=== PATIENT | male | born 1950 | race Caucasian/White ===

== ENCOUNTER 2020-10-08 09:26 | Inpatient (IN) | payer MEDICARE, OTHER ==
[2020-10-08] VITALS (20 sets, daily range): BP systolic 86–144; BP diastolic 48–85
[~2020-10-08] VITALS: Ht 188 cm; Wt 113.4 kg
[~2020-10-08 09:26] MED LIST: ALTACE10 MG PO; AMITRIPTYLINE H50 M2 PO; CLOPIDOGREL; GLUCOPHAGE1000 MG PO; GLUCOTROL; HYDROCHLOROTHIA25 M1 PO; KLOR-CON 1010 MEQ PO; LIPITOR40 MG PO; OMEPRAZOLE 20 M20 M1 PO; TENORMIN; TRAMADOL; ZINC
[2020-10-08] MEDS ORDERED: SPIRONOLACTONE50 MG PO (09:38)
[2020-10-08] MEDS ORDERED: NORVASC10 MG PO (09:39)
[2020-10-08] MEDS ORDERED: NORCO 10-325 T1 EACH PO (09:39)
[2020-10-08] MEDS ORDERED: LEVO-T50 MCG PO (09:40)
[2020-10-08] MEDS ORDERED: METOPROLOL SUC100 MG PO (09:41)
[2020-10-08 10:04] LABS: HEMATOCRIT 42.8 % (42.0-52.0); HEMOGLOBIN 14.1 gm/dL (14.0-18.0); MCH 31.2 pg (26.0-34.0); MCHC 32.9 g/dL (28.0-37.0); MCV 94.9 fL (80.0-100.0); MPV 7.6 fl. (7.2-11.1); NUCLEATED RBCS 0 /100WBC; PLATELET COUNT* 355 thou/uL (150-400); RBC 4.51 mil/uL (4.50-6.00); RDW-CV 12.5 % (10.5-14.5); WBC 20.5 thou/uL (4.0-11.0)
[2020-10-08 10:13] LABS: CALCIUM 8.7 mg/dL (8.5-10.1); CREATININE 4.5 mg/dL (0.6-1.3); POTASSIUM 5.5 mmol/L (3.5-5.1)
[2020-10-08 10:22] LABS: APTT 26.9 Seconds (25.0-31.3); INR 1.1; PROTIME 11.6 Seconds (9.20-11.50)
[2020-10-08 10:23] LABS: ALBUMIN 3.5 g/dL (3.4-5.0); TOTAL BILIRUBIN 1.6 mg/dL (<0.1-1.0); TOTAL PROTEIN 8.4 g/dL (6.4-8.2)
[2020-10-08 10:40] LABS: ABSOLUTE LYMPHOCYTES 0.8 thou/uL (0.8-5.3); ABSOLUTE MONOCYTES 1.4 thou/uL (0.0-1.2); ABSOLUTE NEUTROPHILS 18.2 thou/uL (1.6-8.1); PLATELET ESTIMATE ADEQUATE
[2020-10-08 11:32] LABS: BE -9.8 mmol/L (-2 to +3); PCO2 VENOUS 34.7 mmHg (41.0-51.0); PO2 VENOUS 40.9 mmHg (35.0-45.0)
[2020-10-08 12:56] LABS: BE -6.4 mmol/L (-2 to +3); PCO2 31.3 mmHg (35.0-45.0); PO2 63.2 mmHg (75.0-100.0)
[2020-10-08 13:38] LABS: URINE BLOOD 2+ (Negative); URINE CLARITY CLEAR; URINE COLOR BROWN; URINE GLUCOSE-RANDOM 1+ (Negative); URINE KETONES TRACE (Negative); URINE LEUKOCYTES-REFLEX NEGATIVE (Negative); URINE PROTEIN TRACE (Negative); URINE SPECIFIC GRAVITY >= 1.030 (1.005-1.030)
[2020-10-08 13:40] LABS: ICTOTEST (BILI CONFIRMATORY) Negative (Negative); URINE BILIRUBIN 2+ (Negative); URINE NITRITE-REFLEX POSITIVE (Negative)
[2020-10-08 13:49] LABS: HYALINE CASTS >10 Many /LPF (None Seen)
[2020-10-08 13:50] LABS: MUCUS 0-3 Light strn/LPF (None Seen); URINE WBC-REFLEX 6-15 Few /HPF (0-5)
[2020-10-08 13:51] LABS: AMORPHOUS URATES Moderate /LPF (None Seen)
[2020-10-08 13:52] LABS: SQUAMOUS 0-3 Few /LPF (0-3); URINE RBC 0-2 Rare /HPF (0-2)
[2020-10-08 13:54] LABS: BACTERIA-REFLEX 1-9 Few /HPF (None Seen)
--- NOTE | 2020-10-08 14:44 | NUR ---
1252 PT ADMITTED PER CART FROM ER. PLEASE SEE ADMISSION HISTORY AND ASSESSMENT. PT HAS BEEN INCONTINENT OF URINE. LINDER PLACED ORDERED
[2020-10-08 15:15] LABS: CK-MB MASS 17.8 ng/mL (<0.5-3.6); MAGNESIUM 1.8 mg/dL (1.8-2.4); PHOSPHORUS* 4.1 mg/dL (2.5-4.9)
[2020-10-08 16:27] LABS: ALBUMIN 2.8 g/dL (3.4-5.0); CALCIUM 8.5 mg/dL (8.5-10.1); CREATININE 4.3 mg/dL (0.6-1.3); MAGNESIUM 1.7 mg/dL (1.8-2.4); PHOSPHORUS* 4.1 mg/dL (2.5-4.9); POTASSIUM 4.9 mmol/L (3.5-5.1)
--- NOTE | 2020-10-08 16:58 | NUR ---
CLOTHING SENT HOME WITH SPOUSE. DPOA INFORMATION GIVEN TO SPOUSE.
[2020-10-08] MEDS ORDERED: GLIPIZIDE 10 MG10 MG PO (17:08)
--- NOTE | 2020-10-08 17:32 | NUR ---
PATIENT PROGRESSING TOWARDS GOALS.MORE ALERT. ELECTROLYTES CORRECTING. REMAINS ON DKA PROTOCOL. LESS TACHYCARDIC. ABDOMEN SOFTER AFTER DECOMPRESSION WITH NG TUBE. SEE INTAKE AND OUTPUT AND VITAL SIGN CHARTING. SPOUSE HAS VISITED. MED LIST UPDATED
[2020-10-08 20:22] LABS: ALBUMIN 2.9 g/dL (3.4-5.0); CALCIUM 7.6 mg/dL (8.5-10.1); CREATININE 4.2 mg/dL (0.6-1.3); MAGNESIUM 1.7 mg/dL (1.8-2.4); POTASSIUM 4.2 mmol/L (3.5-5.1)
[2020-10-09] VITALS (31 sets, daily range): BP systolic 99–132; BP diastolic 50–76
[2020-10-09 00:39] LABS: ALBUMIN 2.7 g/dL (3.4-5.0); CALCIUM 7.7 mg/dL (8.5-10.1); CREATININE 4.4 mg/dL (0.6-1.3); MAGNESIUM 1.7 mg/dL (1.8-2.4); PHOSPHORUS* 3.4 mg/dL (2.5-4.9); POTASSIUM 4.3 mmol/L (3.5-5.1)
[2020-10-09 04:28] LABS: CALCIUM 8.8 mg/dL (8.5-10.1); CREATININE 4.8 mg/dL (0.6-1.3); POTASSIUM 4.2 mmol/L (3.5-5.1)
[2020-10-09 04:30] LABS: ALBUMIN 2.5 g/dL (3.4-5.0); CALCIUM 8.8 mg/dL (8.5-10.1); CREATININE 4.8 mg/dL (0.6-1.3); MAGNESIUM 1.7 mg/dL (1.8-2.4); PHOSPHORUS* 3.3 mg/dL (2.5-4.9); POTASSIUM 4.2 mmol/L (3.5-5.1)
[2020-10-09 04:53] LABS: ABSOLUTE LYMPHOCYTES 0.6 thou/uL (0.8-5.3); ABSOLUTE MONOCYTES 1.6 thou/uL (0.0-1.2); BASOPHILS 0.1 %; HEMATOCRIT 37.1 % (42.0-52.0); HEMOGLOBIN 12.8 gm/dL (14.0-18.0); LYMPHOCYTES 4.3 %; MCHC 34.4 g/dL (28.0-37.0); MCV 90.2 fL (80.0-100.0); MPV 7.5 fl. (7.2-11.1); NUCLEATED RBCS 0 /100WBC; PLATELET COUNT* 371 thou/uL (150-400); POLYS 84.6 %; RBC 4.11 mil/uL (4.50-6.00); RDW-CV 12.7 % (10.5-14.5); WBC 14.1 thou/uL (4.0-11.0)
[2020-10-09 08:22] LABS: ALBUMIN 2.4 g/dL (3.4-5.0); CALCIUM 7.7 mg/dL (8.5-10.1); CREATININE 4.9 mg/dL (0.6-1.3); MAGNESIUM 1.8 mg/dL (1.8-2.4); PHOSPHORUS* 3.9 mg/dL (2.5-4.9); POTASSIUM 4.3 mmol/L (3.5-5.1)
[2020-10-09 08:43] LABS: TROPONIN-I LEVEL 0.06 ng/mL (<0.06)
--- NOTE | 2020-10-09 09:22 | NUR ---
8792 ASSUMED CARE OF PATIENT. PLEASE SEE DOCUMENTED ASSESSMENT.
--- NOTE | 2020-10-09 09:23 | NUR ---
0800 DR BARRERA HERE AND STOPPING DKA PROTOCOL. SEE EMAR
--- NOTE | 2020-10-09 09:46 | EKG ---
[place] [address] ELECTROCARDIOGRAM REPORT Name: CAMILLE ANDERSON Room: [address] IN M.R.#: [id number] Admission: 10/08/20 Attend Phys: Chato Charles, Discharge: Date of : 48 Date of Service: 10/08/20 0933 Report #: [id number] THIS REPORT FOR: //name// [facility] ED Test Date: 2020-10-08 Test Time: 09:33:13 Pat Name: CAMILLE ANDERSON Department: Room: [facility] Gender: M Check Totaler: ANDREA : 1950 Requested By: Ruddy Albert Order Number: [id number] MD: Kali Dee Measurements Intervals [place] Rate: 134 P: CA: QRS: -6 QRSD: 102 T: 113 QT: 333 QTc: 498 Interpretive Statements atrial tachycardia Inferior infarct, old Abnormal lateral Q waves Probable anteroseptal infarct, old Baseline wander in lead(s) II,III,aVF Compared to ECG 12/12/2009 09:53:04 Sinus rhythm no longer present Myocardial infarct finding still present Electronically Signed On 10-09-2020 9:46:36 CDT by Kali Dee [email or web address] <ELECTRONICALLY SIGNED> By: Kali Dee MD, [facility] 10/09/20945 2 2 Kali Dee MD, [facility] /EPI
--- NOTE | 2020-10-09 17:13 | NUR ---
PATIENT HAS MADE SOME PROGRESS TOWARDS GOALS. MORE ORIENTED MOST OF DAY. FENTANYL X 1 FOR NECK PAIN. NEEDS SUPPLEMENTAL OXYGEN WHEN ASLEEP. OFF OF DKA PROTOCOL. CO/ THIRST. FREQUENT ORAL CARE. WOUND ON COCCYX TREATED CHARTED. PLAN IS CONTINUE NG DECOMPRESSION AT LEAST OVERNIGHT. PT STATES HE IS PASSING FLATUS. POSSIBLE TELE TOMORROW PER HOSPITALIST. SPOUSE PRESENT MUCH OF DAY.
[2020-10-10] VITALS (40 sets, daily range): BP systolic 120–163; BP diastolic 55–105
[2020-10-10 02:05] LABS: GLYCOHEMOGLOBIN (HGB A1C) 7.5 % (4.8-5.6)
[2020-10-10 04:12] LABS: ABSOLUTE LYMPHOCYTES 0.6 thou/uL (0.8-5.3); ABSOLUTE MONOCYTES 1.7 thou/uL (0.0-1.2); ABSOLUTE NEUTROPHILS 10.3 thou/uL (1.6-8.1); ALBUMIN 2.1 g/dL (3.4-5.0); ALKALINE PHOSPHATASE 60 U/L (46-116); ANION GAP 14 mmol/L (7-16); BUN 80 mg/dL (7-18); CALCIUM 7.6 mg/dL (8.5-10.1); CHLORIDE 104 mmol/L (98-107); CO2 20 mmol/L (21-32); CREATININE 4.6 mg/dL (0.6-1.3); EOSINOPHILS 0.1 %; GLUCOSE 174 mg/dL (70-99); HEMATOCRIT 35.1 % (42.0-52.0); HEMOGLOBIN 11.8 gm/dL (14.0-18.0); LYMPHOCYTES 4.9 %; MCH 31.5 pg (26.0-34.0); MCHC 33.7 g/dL (28.0-37.0); MCV 93.4 fL (80.0-100.0); MONOCYTES 13.5 %; MPV 7.3 fl. (7.2-11.1); NUCLEATED RBCS 0 /100WBC; PHOSPHORUS* 4.5 mg/dL (2.5-4.9); PLATELET COUNT* 325 thou/uL (150-400); POLYS 81.5 %; POTASSIUM 4.2 mmol/L (3.5-5.1); RBC 3.76 mil/uL (4.50-6.00); RDW-CV 12.5 % (10.5-14.5); SGOT 124 U/L (15-37); SGPT 62 U/L (30-65); SODIUM 138 mmol/L (136-145); TOTAL BILIRUBIN 0.8 mg/dL (<0.1-1.0); TOTAL PROTEIN 6.4 g/dL (6.4-8.2); WBC 12.7 thou/uL (4.0-11.0)
[2020-10-10 04:43] LABS: PREALBUMIN 12.7 mg/dL (18.0-35.7)
--- NOTE | 2020-10-10 10:21 | NUR ---
WOUND NURSE: PATIENT WAS SEEN TO ADDRESS NEW CHANGE IN SKIN CHARACTERISTIC TO BILATERAL BUTTOCKS. PRESENTS WITH MAROON COLORED NONBLANCHEABLE AREA WITH CURRENTLY INTACT SKIN, BUT WITH SIGNIFICANT INDRUATIN OVER WTH LEFT ISCHIAL TUBEROSITY. EACH AFFECTED AREA MEASURES APPROX 5 X 5 CM. THE AFFECTED AREA ALSO PRESENTS WITH BUTTERFLY APPEARANCE WHICH MAY REPRESENT THE ONSET OF A DEIRDRE ULCER. PATIENT IS ON ICU LOW AIRLOSS MATTRESS AND IS ON TURN SCHEDULE. RECOMMEND SIDE TO SIDE REPOSITIONING AND AVOID POSITIONING ON BACK AT THIS TIME. PATIENT IS CURRENTLY NOT TEACHABLE PERTAINING TO THIS WOUND.
--- NOTE | 2020-10-10 14:50 | NUR ---
ICU rounds: SBO, NG tube in place, no surgery planned at this time. Renal following. Pt may need a lap diana once med stable. Pt is A&O. Resides at home with , in room at bedside. Pt normally independent. Pt has a cane that he uses for community distances and a walker that he uses in the community. Hx of HH in 2009 post CVA. No hx of SNF or ARU. Goal is home at dc, CM to follow for dc needs. Anticipate Pt will be inpt for several days. Remains ICU status.
--- NOTE | 2020-10-10 18:26 | NUR ---
PT A&O x2, FREQUENT RE-ORIENTATION PROVIDED, PLEASANT AND CO-OPERATIVE. AND DAUGHTER IN THE ROOM MOST OF THE DAY. CARDIZEM TITRATED PER PROTOCOL, CURRENTLY AT 15 MG/HR, ECG- A FIB RATE CONTROLLED. VSS. NG CONTD TO LIS, MINIMAL DRAINAGE. SMALL BOWEL SERIES TOMMOROW. 1/2 NS CONTD AT 50 MLS/HR. REPORT GIVEN TO KERRY WHITE, TELE.
[2020-10-11] VITALS: BP 108/69
[2020-10-11 04:00] VITALS: BP 136/76
[2020-10-11 05:19] LABS: ABSOLUTE LYMPHOCYTES 0.6 thou/uL (0.8-5.3); ABSOLUTE MONOCYTES 1.7 thou/uL (0.0-1.2); ABSOLUTE NEUTROPHILS 12.6 thou/uL (1.6-8.1); BASOPHILS 0.1 %; HEMATOCRIT 36.6 % (42.0-52.0); HEMOGLOBIN 12.3 gm/dL (14.0-18.0); LYMPHOCYTES 3.9 %; MCH 31.2 pg (26.0-34.0); MCHC 33.6 g/dL (28.0-37.0); MCV 92.9 fL (80.0-100.0); MONOCYTES 11.7 %; MPV 7.1 fl. (7.2-11.1); NUCLEATED RBCS 0 /100WBC; PLATELET COUNT* 395 thou/uL (150-400); POLYS 84.3 %; RBC 3.93 mil/uL (4.50-6.00); RDW-CV 12.3 % (10.5-14.5)
[2020-10-11 05:23] LABS: ALBUMIN 2.2 g/dL (3.4-5.0); CALCIUM 8.3 mg/dL (8.5-10.1); TOTAL BILIRUBIN 0.7 mg/dL (<0.1-1.0); TOTAL PROTEIN 6.9 g/dL (6.4-8.2)
--- NOTE | 2020-10-11 05:31 | NUR ---
PT AWAKE ON AND OFF THIS SHIFT. ASSESSMENT DOCUMENTED. MEDS GIVEN PER E-MAR. IV PATENT, FLUIDS INFUSING. CARDIZEM DRIP RUNNING. PAIN MEDS GIVEN PER E-MAR WITH RELIEF. NG TUBE TO LIS. LINDER IN PLACE TO DEPENDAND DRAINAGE. FALL PRECAUTIONS IN PLACE. WILL CONTINUE WITH PLAN OF CARE.
[2020-10-11 05:32] LABS: CALCIUM 8.3 mg/dL (8.5-10.1)
[2020-10-11 08:28] VITALS: BP 133/74
--- NOTE | 2020-10-11 09:42 | EKG ---
[place] [address] ELECTROCARDIOGRAM REPORT Name: CAMILLE ANDERSON Room: [address] ADM IN M.R.#: [id number] Admission: 10/08/20 Attend Phys: Chato Charles, Discharge: Date of : 48 Date of Service: 10/11/20 0851 Report #: [id number] THIS REPORT FOR: //name// [facility] Test Date: 2020-10-11 Test Time: 08:51:49 Pat Name: CAMILLE ANDERSON Department: Room: [facility] Gender: M Banquet Manager: ANIL : 1950 Requested By: Kali Dee Order Number: [id number] Reading MD: Kali Dee Measurements Intervals [place] Rate: 100 P: DE: QRS: -8 QRSD: 97 T: 122 QT: 354 QTc: 457 Interpretive Statements Atrial fibrillation Ventricular premature complex Anterior infarct, old Nonspecific T abnormalities, lateral leads Compared to ECG 10/08/2020 09:33:13 Ventricular premature complex(es) now present Ectopic atrial tachycardia, unifocal no longer present Myocardial infarct finding still present Electronically Signed On 10-11-2020 9:41:50 CDT by Kali Dee [email or web address] <ELECTRONICALLY SIGNED> By: Kali Dee MD, [facility] 10/11/20 0941 0 0 Kali Dee MD, [facility] /EPI
--- NOTE | 2020-10-11 10:31 | NUR ---
RADIOLOGY AT BEDSIDE TO DO BOWEL SERIES.
--- NOTE | 2020-10-11 12:56 | NUR ---
INSTRUCTED TO KEEP NG TUBE CLAMPED PER DR. MEZA.
--- NOTE | 2020-10-11 13:38 | CON ---
[address] [address] CONSULTATION Name: CAMILLE ANDERSON Kimberly Room: [address] IN [place].Bria.#: [id number] Admission: 10/08/20 Attend Phys: Chato Charles MD Discharge: Date of : 48 Report #: [id number] THIS REPORT FOR: cc: Joyce Burrows Tammy RNP Blick, David R. MD [facility] ~ DATE OF SERVICE: 10/10/2020 HISTORY OF PRESENT ILLNESS: The patient is a 70-year-old white male who I was asked to see in the hospital today after he was noted to be in atrial fibrillation. The patient has no previous history of heart disease. He apparently had a stress test years ago. He is not very active at this time. He was admitted to [facility] 4 days ago with abdominal pain and vomiting. He was found to have cholecystitis. He was placed on NG suction. This weekend, he went into atrial fibrillation. Cardiology consultation was requested. He denies history of chest pain, shortness of breath, palpitations, syncope, heart murmur. PAST MEDICAL HISTORY: Significant for: 1. Hernia repair 2. Sinus surgery. 3. Hypertension. 4. Hyperlipidemia. 5. Diabetes. 6. He apparently had a stroke back in 2009 affecting his speech. He was admitted to [facility] and was found to have a small bleed, but did not require surgery. CURRENT MEDICATIONS: Consist of: 1. Metformin. 2. Spironolactone. 3. Elavil. 4. Amlodipine. 5. Synthroid. 6. Potassium. 7. Omeprazole. 8. Altace. 9. Lipitor. 10. Metoprolol. 11. Glipizide. ALLERGIES: He has no known drug allergies. FAMILY HISTORY: [place] [address] CONSULTATION Name: CAMILLE ANDERSON Kimberly Room: [address]#: [id number] Admission: 10/08/20 Attend Phys: Chato Charles MD Discharge: Date of : 48 Report #: [id number] SOCIAL HISTORY: He is . He and his live in [place]. 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 No smoking. No alcohol abuse. REVIEW OF SYSTEMS: No history of asthma, liver disease. He has had a bladder stone in the past. No cancer. No psychiatric illness. No chronic skin condition. PHYSICAL EXAMINATION: GENERAL: Revealed a large, elderly male, lying in bed. He appeared in no distress. He has an NG suction tube in place. VITAL SIGNS: Reveals blood pressure of 140/ , pulse is 100 and irregular, respirations nonlabored. He is afebrile. HEENT: He is anicteric. Conjunctivae pink. Mucous membranes are moist. NECK: Veins do not appear distended. No carotid bruits. CHEST: Clear to auscultation. CARDIAC: Irregular, tachycardia. ABDOMEN: Obese, soft. EXTREMITIES: Had no edema. Dorsalis pedis pulse 2+ bilaterally. SKIN: Cool and dry. NEUROLOGIC: Nonfocal. RADIOLOGICAL DATA: His ECG on admission showed a sinus tachycardia, first-degree AV block, septal Q-waves. His current ECG shows atrial fibrillation with an increased ventricular response rate. His workup so far included an x-ray on admission that showed normal heart size, clear lung romero, decreased inspiration. LABORATORY DATA: Sodium 138, potassium 4.2. Creatinine was 0.9 in 2009 and on admission it is 4.5 and currently it is 4.6. SGOT 124, SGPT 62. Albumin 2.1. Troponins 0.06. BNP 4503. White blood cell count 12.7, hematocrit 35.1. His urinalysis, trace protein. IMPRESSION AND RECOMMENDATIONS: 1. Atrial fibrillation. I would consider anticoagulation because of his previous history of stroke. I would agree with diltiazem and metoprolol to control the ventricular response rate. I would not recommend cardioversion at this time. 2. Diabetes. 3. Hypertension. The patient has been on a calcium juvenal, [place] [address] CONSULTATION Name: JUSTINCAMILLE L Room: [address] [place] [facility]#: [id number] Admission: 10/08/20 Attend Phys: Chato Charles MD Discharge: Date of : 48 Report #: [id number] beta juvenal. 4. Previous anterior cerebral bleed. 5. Cholecystitis. The patient has an NG suction. 6. Hyperlipidemia. The patient is on a statin drug. 7. Diabetes. The patient has been on oral medications. 8. Obesity. 9. Acute renal failure. <ELECTRONICALLY SIGNED> By: Kali Dee MD, FACC 10/11/20 1338 1425 0040Dakermit Dee MD, FAC /nt
--- NOTE | 2020-10-11 13:47 | 2DMMODE ---
[place] [address] 2 D/M-MODE ECHOCARDIOGRAM Name: LILIANKimberlyCAMILLE L Room: [address] IN Barbie#: [id number] Admission: 10/08/20 Attend Phys: Chato Charles, Discharge: Date of : 48 Date of Service: 10/10/20 1555 Report #: [id number] THIS REPORT FOR: cc: Joyce Burrows Tammy RNP Blick, David R. MD [facility] ~ APPROVED REPORT Study performed: 10/10/2020 10:10:01 EXAM: Comprehensive 2D, Doppler, and color-flow Echocardiogram Patient Location: In-Patient Room #: 002 Status: routine BSA: 2.28 HR: 116 bpm BP: 159/75 mmHg Other Information Study Quality: Good Indications Congestive Heart Failure 2D Dimensions IVSd: 11.49 (7-11mm) LVOT Diam: 25.06 (18-24mm) LVDd: 58.87 mm PWd: 12.09 (7-11mm) Ascending Ao: 36.76 (22-36mm) LVDs: 39.67 (25-40mm) Aortic Root: 39.08 mm Volumes Left Atrial Volume (Systole) LA ESV Index: 19.90 mL/m2 Aortic Valve AoV Peak Naun.: 1.27 m/s AO Peak Gr.: 6.46 mmHg LVOT Max P.75 mmHg AO Mean Gr.: 4.03 mmHg LVOT Mean P.37 mmHg LVOT Max V: 0.83 m/s AO V2 VTI: 18.30 cm LVOT Mean V: 0.54 m/s MILLY (VTI): 3.50 cm2 LVOT V1 VTI: 12.99 [place] [address] 2 D/M-MODE ECHOCARDIOGRAM Name: CAMILLE ANDERSON Room: [address]#: [id number] Admission: 10/08/20 Attend Phys: Chato Charles, Discharge: Date of : 48 Date of Service: 10/10/20 1555 Report #: [id number] PV Peak Naun.: 1.28 m/s PV Peak Gr.: 6.53 mmHg Tricuspid Valve RAP Estimate: 5.00 mmHg TR Peak Gr.: 29.32 mmHg RVSP: 34.00 mmHg PA Pressure: 34.00 mmHg Left Ventricle The left ventricle is normal size. moderate hypokinesis noted of the apex and inferior wall Mild concentric left ventricular hypertrophy. Left ventricular systolic function is moderately decreased. LVEF is 35-40%. Right Ventricle The right ventricle is normal size. The right ventricular systolic function is normal. Atria The left atrium size is normal. The right atrium size is normal. Aortic Valve The aortic valve is normal in structure. No aortic regurgitation is present. There is no aortic valvular stenosis. Mitral Valve The mitral valve is normal in structure. There is trace mitral valve regurgitation noted. No evidence of mitral valve stenosis. Tricuspid Valve The tricuspid valve is normal in structure. Trace tricuspid regurgitation. estimated pa pressure 40 mm hg Pulmonic Valve The pulmonary valve is normal in structure. There is no pulmonic valvular regurgitation. Great Vessels The aortic root is normal in size. IVC is not well visualized. Pericardium There is no pericardial effusion. <Conclusion> Mild concentric [place] [address] 2 D/M-MODE ECHOCARDIOGRAM Name: CAMILLE ANDERSON Room: [address] IN .R.#: [id number] Admission: 10/08/20 Attend Phys: Chato Charles, Discharge: Date of : 48 Date of Service: 10/10/20 1555 Report #: [id number] LVEF is 35-40%. moderate hypokinesis noted of the apex and inferior wall Trace tricuspid regurgitation. estimated pa pressure 40 mm hg There is trace mitral valve regurgitation noted. <ELECTRONICALLY SIGNED> By: Kali Dee MD, [facility] 10/10/20 1555 54 [id number] Kali Dee MD, FACC /INF
[2020-10-11 14:06] VITALS: BP 133/74
--- NOTE | 2020-10-11 14:09 | NUR ---
Pt up from ICU. Ng tube remains in place. KUB today. Renal following. Anticipate dc in several days. CM following for dc needs.
[2020-10-11 16:00] VITALS: BP 151/66
--- NOTE | 2020-10-11 17:43 | NUR ---
SWITCH TO PO CARDIZEM VIAN NG TUBE AND GEODON GIVEN TO HELP PT SLEEP. PT SLEEPING COMFORTABLY THIS EVENING AND WILL CHANGE TO SPECIALTY BED ONCE HE HAS HD MORE SLEEP. WILL CONTINUE TO ASSESS.
--- NOTE | 2020-10-11 19:07 | NUR ---
BEDSIDE REPORT GIVEN TO NIGHT RN.
[2020-10-11 19:20] VITALS: BP 139/67
[2020-10-12] VITALS (7 sets, daily range): BP systolic 124–162; BP diastolic 61–77
[2020-10-12 06:17] LABS: HEMATOCRIT 41.9 % (42.0-52.0); HEMOGLOBIN 13.9 gm/dL (14.0-18.0); MCHC 33.1 g/dL (28.0-37.0); MCV 93.8 fL (80.0-100.0); MPV 7.2 fl. (7.2-11.1); RBC 4.47 mil/uL (4.50-6.00); RDW-CV 12.6 % (10.5-14.5); WBC 17.9 thou/uL (4.0-11.0)
[2020-10-12 06:22] LABS: CALCIUM 9.2 mg/dL (8.5-10.1); CREATININE 2.4 mg/dL (0.6-1.3)
[2020-10-12 06:23] LABS: POTASSIUM 2.8 mmol/L (3.5-5.1)
[2020-10-12 06:29] LABS: MAGNESIUM 2.7 mg/dL (1.8-2.4)
--- NOTE | 2020-10-12 06:55 | NUR ---
PT SLEPT MOST OF SHIFT. ASSESSMENT DOCUMENTED. MEDS GIVEN PER E-AUG. IV PATENT, FLUIDS INFUSING. NO REPORTS OF PAIN THIS SHIFT. PT HAD 2 LARGE BOWEL MOVEMENTS, MOSTLY LIQUID WITH A LITTLE BIT OF FORMED STOOL. FALL PRECAUTIONS IN PLACE. PT REPOSITIONED THROUGH NIGHT. WILL CONTINUE WITH PLAN OF CARE.
--- NOTE | 2020-10-12 08:57 | EKG ---
[place] [address] ELECTROCARDIOGRAM REPORT Name: CAMILLE ANDERSON Room: [address] ADM IN M.R.#: [id number] Admission: 10/08/20 Attend Phys: Chato Charles, Discharge: Date of : 48 Date of Service: 10/12/20 0833 Report #: [id number] THIS REPORT FOR: //name// [facility] Test Date: 2020-10-12 Test Time: 08:33:35 Pat Name: CAMILLE ANDERSON Department: Room: [address] Gender: M Pricing Actuary: ANIL : 1950 Requested By: Kali Dee Order Number: [id number] Reading MD: Kali Dee Measurements Intervals [place] Rate: 113 P: NV: QRS: -25 QRSD: 95 T: 252 QT: 330 QTc: 453 Interpretive Statements Atrial fibrillation with abberancy Borderline left axis deviation Probable anteroseptal infarct Compared to ECG 10/11/2020 08:51:49 Myocardial infarct finding still present Electronically Signed On 10-12-2020 8:57:43 CDT by Kali Dee [email or web address] <ELECTRONICALLY SIGNED> By: Kali Dee MD, [facility] 10/12/20 0857 2 2 Kali Dee MD, [facility] /EPI
--- NOTE | 2020-10-12 11:46 | NUR ---
WOUND NURSE: PATIENT SEEN FOR FOLLOW UP ASSESSMENT PERTAINING TO SKIN CHANGES ON BILATERAL BUTTOCKS AND SACRUM. AFFECTED AREA PRESENTS BUTTERFLY IN SHAPE AND MEASURING 16 X 13 CM. PRESENTS WITH RED, TO MAROON, TO PURPLE NONBLANCHEABLE TISSUE. INDURATION PRESENT AROUND ISCHIUM. NO BREAKS IN THE SKIN. PATIENT WAS BATHED, THEN APPLIED SACRAL BORDERED FOAM TO AFFECTED AREAS WITH INNER EDGES SECURED WITH SURESITE TRANSPARENT DRESSING. PATIENT IS ON A [employer] AIRLOSS MATTRESS WITH Q 1 HR TURN SCHEDULE. SUSPECT AT THIS TIME THIS MAY BE DEIRDRE ULCER. PLAN TO CONTINUE WITH CURRENT INTERVENTION.
--- NOTE | 2020-10-12 13:04 | NUR ---
Continue NGT, clamp for PO meds. Continue IVABXs. Pt's mentation is poor today. Pt will likely need HH at dc. Anticipate dc in a few days.
--- NOTE | 2020-10-12 17:44 | NUR ---
Pt tachycardic and tachypneic. VSS, though temp elevated at 99.1-99.8. Several loose/liquid stools today. Order written by Dr. Castaneda to dc NGT; however, given pt's mentation and LOC, have not tried giving meds po up to this point. Remains on diltiazem 90 mg q6h; crushed and given via NGT. Metoprolol dose increased today from 2.5 to 5 mg IV q6h. Pt's HR 110s-130s, and as high as 160s-180s with activity. HR decreases to 90s-110s following metoprolol dosing temporarily, then back up above 110s. K+ level has run between 2.6-2.9 today; received one dose 40 mEq this am, then 2 more doses of 20 mEq KCl elixir this afternoon. Now receiving 2 IV doses KCl (20 mEq each) for K+ 2.6. Will also receive digoxin IV this evening with another dose just after MN per Dr. Dee's order. Pt not conversational today. Eyes open and he responds with grunts at times, and groans with turns and cleaning. Bottom red, excoriated, and dressed twice with foam protective drsg; each drsg removed due to soiling soon after being placed. Pt up to BSC with 2 max assist in effort to get remaining BM out due to multiple [id number] BMs. Pt continued to have multiple loose stools afterwards. Pt remains very weak, and HR 160s-180s while on BSC. Padron was occluded this am, with urine leaking around tubing. Attempted to irrigate, but unable to do so. Old padron dc'd and new 18 Fr padron placed; draining yellow urine with some sediment. NGT remains in place for med administration. Will continue to monitor.
[2020-10-13 03:30] VITALS: BP 134/71
--- NOTE | 2020-10-13 04:36 | NUR ---
ASSUMED CARE OF PT AFTER REPORT AT 1930. PT A&XO1. CONFUSED. PHYSICAL ASSESSMENT COMPLETED AND CHARTED. HRT 110-130'S MOST OF THE TIME. STILL WITH EPISODES OF HR 150'S-160'S WHEN BEING MOVED/TURNED. STILL WITH EPISODES OF LOOSE STOOLS. PT WITH LINDER TO DEPENDENT DRAIN. PT RR 20'S TO 30'S. O2 SAT 88-89%-PLACED ON O2 AT 2L NC WITH 92-93% O2 SAT. RECHECKED POTASSIUM 3.1-DR BATISTA OF NEPHRO MADE AWARE WITH NEW ORDER. PLS SEE MAR. MAINTAINED NGT FOR MEDS. ST CONSULTED FOR EVAL. FALL PRECAUTIONS IN PLACE.
[2020-10-13 05:00] LABS: HEMATOCRIT 40.7 % (42.0-52.0); HEMOGLOBIN 13.2 gm/dL (14.0-18.0); MCH 30.8 pg (26.0-34.0); MCHC 32.4 g/dL (28.0-37.0); MCV 95.1 fL (80.0-100.0); MPV 7.1 fl. (7.2-11.1); NUCLEATED RBCS 0 /100WBC; PLATELET COUNT* 431 thou/uL (150-400); RBC 4.28 mil/uL (4.50-6.00); RDW-CV 12.7 % (10.5-14.5); WBC 21.2 thou/uL (4.0-11.0)
[2020-10-13 05:19] LABS: ALBUMIN 2.3 g/dL (3.4-5.0); CALCIUM 8.5 mg/dL (8.5-10.1); POTASSIUM 3.7 mmol/L (3.5-5.1); TOTAL BILIRUBIN 0.8 mg/dL (<0.1-1.0); TOTAL PROTEIN 6.5 g/dL (6.4-8.2)
[2020-10-13 06:04] LABS: INR 1.2; PROTIME 12.2 Seconds (9.20-11.50)
[2020-10-13 06:40] LABS: ABSOLUTE LYMPHOCYTES 0.4 thou/uL (0.8-5.3); ABSOLUTE MONOCYTES 1.7 thou/uL (0.0-1.2); ABSOLUTE NEUTROPHILS 19.1 thou/uL (1.6-8.1); PLATELET ESTIMATE INCREASED
[2020-10-13 08:09] VITALS: BP 138/76
--- NOTE | 2020-10-13 11:06 | NUR ---
WOUND NURSE: PATIENT SEEN FOR FOLLOW UP ASSESSMENT AND PRESENTS WITHOUT UNTOWARD CHANGE COMPARED TO YESTERDAY. PATIENT WAS ALLOW UP IN CHAIR FOR APPROX 1 HOUR, THEN PLACED BACK IN BED USING PARKER LIFT. PATIENT WAS SITTING ON 2 PILLOWS AND WAFFLE CUSHION WITH ASSISTANCE OF ANTON GORDILLO. PATIENT PLACED ONTO HIS LEFT SIDE ON [facility] LOW AIRLOSS MATTRESS. AND DAUGHTER ARRIVED AND VISITING PATIENT UPON COMPLETION OF THIS TASK. PATIENT ABLE TO RECOGNIZE HIS FAMILY MEMBERS NOW.
[2020-10-13 11:51] VITALS: BP 118/60
[2020-10-13 13:36] LABS: URINE BILIRUBIN NEGATIVE (Negative); URINE BLOOD 3+ (Negative); URINE CLARITY CLEAR; URINE COLOR YELLOW; URINE GLUCOSE-RANDOM 3+ (Negative); URINE KETONES TRACE (Negative); URINE LEUKOCYTES-REFLEX NEGATIVE (Negative); URINE NITRITE-REFLEX NEGATIVE (Negative); URINE PROTEIN TRACE (Negative); URINE UROBILINOGEN 0.2 E.U./dl (0.2-1.0)
[2020-10-13 13:42] LABS: BACTERIA-REFLEX None Seen /HPF (None Seen); CASTS None Seen /LPF (None Seen); SQUAMOUS 0-3 Few /LPF (0-3); URINE RBC 3-10 Few /HPF (0-2); URINE WBC-REFLEX None Seen /HPF (0-5)
[2020-10-13 13:43] LABS: URIC ACID CRYSTALS 0-3 Few /LPF (None Seen)
--- NOTE | 2020-10-13 15:33 | NUR ---
ARU consult placed, anticipate that Pt would be medically stable to dc to ARU on Saturday. Therapies to continue seeing. Pt confused today.
[2020-10-13 20:00] VITALS: BP 136/83
[2020-10-14] VITALS: BP 129/75
[2020-10-14 04:00] VITALS: BP 138/59
[2020-10-14 04:33] LABS: HEMATOCRIT 40.4 % (42.0-52.0); MCHC 32.3 g/dL (28.0-37.0); MCV 96.2 fL (80.0-100.0); MPV 7.8 fl. (7.2-11.1); RBC 4.2 mil/uL (4.50-6.00); RDW-CV 12.9 % (10.5-14.5); WBC 17.8 thou/uL (4.0-11.0)
[2020-10-14 04:52] LABS: INR 1.3; PROTIME 13.4 Seconds (9.20-11.50)
[2020-10-14 04:57] LABS: ALBUMIN 2.2 g/dL (3.4-5.0); CALCIUM 8.1 mg/dL (8.5-10.1); CREATININE 1.7 mg/dL (0.6-1.3); MAGNESIUM 2.2 mg/dL (1.8-2.4); PHOSPHORUS* 3.3 mg/dL (2.5-4.9); POTASSIUM 3.7 mmol/L (3.5-5.1); TOTAL BILIRUBIN 0.5 mg/dL (<0.1-1.0); TOTAL PROTEIN 6.5 g/dL (6.4-8.2)
[2020-10-14 07:50] VITALS: BP 139/72
--- NOTE | 2020-10-14 07:51 | NUR ---
ASSUMED CARE OF PT AFTER REPORT AT 1930. PT A&OX2-3 WITH EPISODESOF CONFUSION. VSS. PHYSICAL ASSESSMENT COMPLETED AND CHARTED. PT ON O2 AT 2L NC. PT TRACING AFIB THEN CONVERTED TO SR IN AM. PT COMPLAINED OF STOMACH PAIN-MED GIVEN PER AUG.MAINTAINED ON NPO. STOOL SPECIMEN SENT TO LAB. MAINTAINED ON SPECIAL CONTACT PRECAUTION. FALL PRECAUTIONS IN PLACE.
[2020-10-14 11:47] VITALS: BP 174/76
--- NOTE | 2020-10-14 12:51 | CON ---
[address] [address] CONSULTATION Name: CAMILLE ANDERSON Room: [address] IN M.R.#: [id number] Admission: 10/08/20 Attend Phys: Chato Charles MD Discharge: Date of : 48 Report #: [id number] THIS REPORT FOR: cc: Joyce Burrows Tammy RNP Khan, Abid R. MD ~ NEPHROLOGY CONSULTATION CONSULTING PHYSICIAN: Dr. Charles. REASON FOR CONSULTATION: Acute kidney injury. HISTORY OF PRESENT ILLNESS: This is a 70-year-old gentleman admitted with 3-4 days of nausea and vomiting, found to have a bowel obstruction, has an NG to suction currently also found to be in DKA, was treated with insulin drip, IV fluids and bicarbonate. Sugars were in the 500 range with some pseudohyponatremia as well. He was taking lisinopril and Aldactone at home. He denies any preexisting history of kidney disease nor does he see a kidney doctor. He currently appears to be comfortable. REVIEW OF SYSTEMS: Constitutional, psych, heme, eyes, ENT, respiratory, cardiac, GI, , endocrine, all negative except as documented above. 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 SOCIAL HISTORY: No tobacco. FAMILY HISTORY: Not pertinent in this 70-year-old gentleman. CURRENT MEDICATIONS: Reviewed. PHYSICAL EXAMINATION: VITAL SIGNS: Blood pressure is 124/68, pulse 116, respirations 25, temperature 36.8. GENERAL: No acute distress. EYES: Open. EARS: Externally normal. NECK: Supple. CARDIOVASCULAR: Tachycardic. LUNGS: Clear to auscultation. ABDOMEN: Soft with some tenderness to palpation. MUSCULOSKELETAL: Nontender. PSYCHIATRIC: Awake, [place] [address] CONSULTATION Name: CAMILLE ANDERSON Room: [address]#: [id number] Admission: 10/08/20 Attend Phys: Chato Charles MD Discharge: Date of : 48 Report #: [id number] LABORATORY DATA: White cell count 14.1, down from 21; hemoglobin 12.8; platelets 371. Sodium 134, potassium 4.3, chloride 99, bicarbonate 21, BUN 72, creatinine 4.9, glucose 176, calcium 7.7, magnesium 1.8, phosphorus 3.9. ASSESSMENT: 1. Acute kidney injury secondary to acute tubular necrosis with a component of volume depletion as well with a creatinine on admission of 4.5. This is in the setting of nausea, vomiting, lisinopril, Aldactone, bowel obstruction. Kidneys were okay on CT. Baseline creatinine is unknown. 2. Pseudohyponatremia on admission. 3. Hypoalbuminemia with albumin of 2.5. 4. UA suggestive of urinary tract infection. 5. Elevated CK at about 1200, was on statin medication at home. 6. Non-insulin dependent diabetes type 2 with severe hyperglycemia/diabetic ketoacidosis on admission. 7. Hypothyroidism. 8. Small-bowel obstruction. 9. History of hemorrhagic cerebrovascular accident. 10. History of prostate surgery. PLAN: Creatinine is 4.9. Continue IV fluids. Surgery is following. He is making urine. Antibiotics per Internal Medicine. We will check lab again in the a.m. Thank you for requesting my opinion in the care and management of this patient. <ELECTRONICALLY SIGNED> By: Lory Raines MD 10/14/20 1251 1004 [id number] Raines MD /nt
--- NOTE | 2020-10-14 12:54 | NUR ---
No weekend dc. CT of head today to see if Pt has had a CVA vs metabolic. Therapies all weekend. If no CVA, hopeful to get Pt to ARU on Saturday, if CVA plan skilled. ARU following.
[2020-10-14 20:00] VITALS: BP 157/78
[2020-10-15] VITALS (7 sets, daily range): BP systolic 14–155; BP diastolic 63–75
--- NOTE | 2020-10-15 01:59 | NUR ---
PT ALERT EXPRESIVE APHASIA. L SIDED WEAKNESS FROM PREVIOUS CVA. TURN Q 2 HRS. PPN INFUSING @75 ML/HR. TELEMETRY SHOWS AFIB. WILL CONTINUE TO MONITOR.
[2020-10-15 04:05] LABS: HEMATOCRIT 39.1 % (42.0-52.0); HEMOGLOBIN 12.8 gm/dL (14.0-18.0); MCH 31.3 pg (26.0-34.0); MCHC 32.7 g/dL (28.0-37.0); MCV 95.4 fL (80.0-100.0); RBC 4.09 mil/uL (4.50-6.00); RDW-CV 12.8 % (10.5-14.5); WBC 16.5 thou/uL (4.0-11.0)
[2020-10-15 04:10] LABS: INR 1.5; PROTIME 15.7 Seconds (9.20-11.50)
[2020-10-15 04:16] LABS: CREATININE 1.4 mg/dL (0.6-1.3); MAGNESIUM 2.2 mg/dL (1.8-2.4); PHOSPHORUS* 4.8 mg/dL (2.5-4.9)
--- NOTE | 2020-10-15 18:55 | NUR ---
RECEIVED REPORT. ASSUMED CARE OF PT AROUND 0730. AM ASSESSMENT AND VITALS COMPLETED CHARTED. MEDS PER EMAR. ISOLATION MAINTAINED. PT WITH FREQUENT STOOLS - CLEANED AND ZINC OXIDE CREAM APPLIED. AT BEDSIDE MOST OF SHIFT. PT ABLE TO WORK WITH THERAPIES THIS SHIFT. NPO EXCEPT MEDS MAINTAINED. IV FLUIDS GOING. PT HAS DENIED PAIN THIS SHIFT. TURNS Q2HRS AND PRN. FALL PRECAUTIONS IN PLACE. CALL LIGHT WITHIN REACH. HOURLY ROUNDING PERFORMED.
[2020-10-16] VITALS: BP 154/70
--- NOTE | 2020-10-16 02:32 | NUR ---
PT MORE ALERT THAN PREVIOUS BOX TOE CUTTER. ORIENTED, TALKATIVE WITH ESPRESIVE APHASIA. TURN Q 2 HRS. BARRIER CREAM ON EXCORIATED BUTTOCKS. TELEMETRY SHOWS AFIB. NPO EXCEPT MEDS WITH APPLE SAUCE. LINDER IN PLACE.
[2020-10-16 04:20] VITALS: BP 149/75
[2020-10-16 04:44] LABS: HEMOGLOBIN 12.3 gm/dL (14.0-18.0); MCH 30.8 pg (26.0-34.0); MCHC 32.3 g/dL (28.0-37.0); MCV 95.4 fL (80.0-100.0); MPV 8.3 fl. (7.2-11.1); RBC 3.98 mil/uL (4.50-6.00); RDW-CV 12.9 % (10.5-14.5); WBC 18.3 thou/uL (4.0-11.0)
[2020-10-16 04:58] LABS: INR 2.1; PROTIME 20.9 Seconds (9.20-11.50)
[2020-10-16 05:08] LABS: ALBUMIN 2.1 g/dL (3.4-5.0); CALCIUM 8.1 mg/dL (8.5-10.1); CREATININE 1.2 mg/dL (0.6-1.3); MAGNESIUM 2.2 mg/dL (1.8-2.4); POTASSIUM 3.8 mmol/L (3.5-5.1); TOTAL BILIRUBIN 0.4 mg/dL (<0.1-1.0); TOTAL PROTEIN 5.9 g/dL (6.4-8.2)
[2020-10-16 12:52] VITALS: BP 157/68
[2020-10-16 16:09] LABS: CALCIUM 8.3 mg/dL (8.5-10.1); CREATININE 1.1 mg/dL (0.6-1.3); POTASSIUM 3.3 mmol/L (3.5-5.1)
[2020-10-16 16:40] VITALS: BP 140/68
--- NOTE | 2020-10-16 18:45 | NUR ---
RECEIVED REPORT. ASSUMED CARE OF PT AROUND 0730. AM ASSESSMENT AND VITALS COMPLETED CHARTED. MEDS PER EMAR. PO PAIN MEDS GIVEN FOR HEADACHE WITH RELIEF. BOTTOM WOUND CLEANED AND PIC TAKEN, DRESSING PLACED. ONE MOSTLY LIQUID STOOL THIS SHIFT. SORES TO SCROTUM PHOTOGRAPHED WELL AND BARRIER CREAM APPLIED. TURNS Q2HRS AND PRN. ISOLATION MAINTAINED. LINDER IN PLACE TO DD. AT BEDSIDE IN THE MORNING TO EARLY AFTERNOON. PT SAD AND WANTING TO GO HOME, REASSURANCE GIVEN. CALL LIGHT WITHIN REACH. HOURLY ROUNDING PERFORMED. FALL PRECAUTIONS IN PLACE.
[2020-10-16 20:00] VITALS: BP 145/85
[2020-10-17 00:08] VITALS: BP 146/71
--- NOTE | 2020-10-17 01:35 | NUR ---
PT ALERT TALKATIVE. EXPRESIVE APHASIA. PT WANTS TO GO HOME. MONITOR SHOWING AFIB. O2 AT 1 LITER NC. BARRIER CREAM AND FOAM DRSG ON BUTTOCKS. LINDER TO DD. D5W AT 150MLS/HR. TURNING Q 2 HRS.
[2020-10-17 04:37] LABS: CALCIUM 7.9 mg/dL (8.5-10.1); CREATININE 1.1 mg/dL (0.6-1.3); POTASSIUM 3.1 mmol/L (3.5-5.1)
[2020-10-17 04:38] VITALS: BP 144/66
[2020-10-17 04:39] LABS: PROTIME 34.8 Seconds (9.20-11.50)
[2020-10-17 04:41] LABS: INR 3.5
[2020-10-17 08:00] VITALS: BP 149/70
[2020-10-17 12:00] VITALS: BP 129/69
--- NOTE | 2020-10-17 13:12 | NUR ---
PT IS RESTING WITHOUT COMPLAINT.VSS ON RA. SR ON MONITOR.PT TO DC HOME TODAY.NOTHING FURTHER.CLWR.WCTM
--- NOTE | 2020-10-17 13:48 | NUR ---
ARU following vs. SNF. ST to see, Pt NPO. Continues to have diarrhea. Anticipate dc in a few days.
--- NOTE | 2020-10-17 18:00 | NUR ---
PT RESTING.VSS ON 1LNC.AFIB ON MONITOR.PT DID HAVE FOLLOW UP ST EVAL TODAY WITH SAME RESULTS,NPO EXCEPT MEDS WITH APPLESAUCE. PT DOES REQUIRE COACHING FOR 2ND SWALLOW.PHYSICIAN PAGED FOR CONTINUUM OF CARE FOR NUTRITION. NOTHING FURTHER.CLWR.WCTM
[2020-10-17 20:00] VITALS: BP 146/64
[2020-10-18 00:02] VITALS: BP 170/85
--- NOTE | 2020-10-18 04:07 | NUR ---
ASSEUMED PT CARE AT APPROX 1930. PT IS AWAKE AND ORIENTED X4. PT IS NOT IN DISTRESS, NO DESATURATIONS NOTED ON 1L OF O2/NC. PT DENIES PAIN. 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 PT IS KEPT NPO EXCEPT APPLE SAUCE-STRICT ASPIRATION PRECAUTIONS IMPLEMENTED. NO ACUTE CHANGES IN PLACE. HOURLY ROUNDING DONE FOR PT SAFETY. HIGH FALL PRECAUTIONS IN PLACE.
[2020-10-18 04:08] VITALS: BP 148/72
[2020-10-18 05:19] VITALS: BP 146/69
[2020-10-18 06:23] LABS: INR 3.3; PROTIME 32.3 Seconds (9.20-11.50)
[2020-10-18 06:28] LABS: CALCIUM 7.9 mg/dL (8.5-10.1); MAGNESIUM 1.9 mg/dL (1.8-2.4); POTASSIUM 3.3 mmol/L (3.5-5.1)
[2020-10-18 11:45] VITALS: BP 140/62
--- NOTE | 2020-10-18 12:28 | NUR ---
Sodium improving. Continues to have diarrhea. ST for improved swallow. ARU following vs. SNF. Anticipate dc in a few days.
--- NOTE | 2020-10-18 16:27 | NUR ---
WOUND NURSE: PATIENT'S SACROGLUTEAL WOUND REVISITED. BUTTOCKS WITH SHALLOW EROSIONS, BUT WITH RED AND NONBLANCHEABLE TISSUE IN THE WOUND BED. SIGNIFICANTLY LESS PERIWOUND REDNESS, NO DEPTH TO EROSION. MINIMAL SEROUS DRAINAGE. NOW MEASURING 7 X 13 X 0.1 CM. REMAINS ON [facility] AIRLOSS MATTRESS AND NEEDS ASSIST WITH REPOSITIONING AND ON TURN SCHEDULE. CLEANSED WITH SOAP AND WATER, RINSED, PATTED DRY. APPLIED SKIN PREP, THEN SACRAL BORDERED FOAM CUT IN HALF AND ADDED TO EACH BUTTOCK. AND INNER EDGE SECURED WITH SURESITE TRANSPARENT DRESSING. PATIENT SEEMS CONFUSED, BUT VERBAL.
[2020-10-18 18:30] LABS: URINE BILIRUBIN NEGATIVE (Negative); URINE BLOOD 1+ (Negative); URINE CLARITY CLEAR; URINE COLOR YELLOW; URINE GLUCOSE-RANDOM NEGATIVE (Negative); URINE KETONES NEGATIVE (Negative); URINE LEUKOCYTES-REFLEX NEGATIVE (Negative); URINE NITRITE-REFLEX NEGATIVE (Negative); URINE PROTEIN NEGATIVE (Negative); URINE UROBILINOGEN 0.2 E.U./dl (0.2-1.0)
[2020-10-18 18:38] LABS: SQUAMOUS 0-3 Few /LPF (0-3)
[2020-10-18 18:39] LABS: BACTERIA-REFLEX 1-9 Few /HPF (None Seen); URINE RBC 0-2 Rare /HPF (0-2)
[2020-10-18 18:40] LABS: CASTS None Seen /LPF (None Seen); CRYSTALS None Seen /LPF (None Seen); MUCUS None Seen strn/LPF (None Seen); URINE WBC-REFLEX None Seen /HPF (0-5)
[2020-10-18 20:00] VITALS: BP 132/66
[2020-10-18 20:59] LABS: URINE POTASSIUM-RANDOM 20.4 mmol/L
[2020-10-19] VITALS (7 sets, daily range): BP systolic 132–154; BP diastolic 55–79
[2020-10-19 06:09] LABS: INR 3.1; PROTIME 30.6 Seconds (9.20-11.50)
[2020-10-19 06:18] LABS: CREATININE 0.9 mg/dL (0.6-1.3); MAGNESIUM 1.8 mg/dL (1.8-2.4); POTASSIUM 3.2 mmol/L (3.5-5.1)
--- NOTE | 2020-10-19 08:04 | NUR ---
ASSUMED PT CARE AT APPROX 1930. PT IS AWAKE AND ORIENTED X4. PT IS NOT IN DISTRESS, NO DESATURATIONS NOTED ON 1L OF O2/NC. 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 PT IS KEPT NPO EXCEPT APPLE SAUCE-STRICT ASPIRATION PRECAUTIONS IMPLEMENTED. PAIN MEDICINE GIVEN FOR ABDOMINAL PAIN WITH RELIEF. NO ACUTE CHANGES IN PLACE. HOURLY ROUNDING DONE FOR PT SAFETY. HIGH FALL PRECAUTIONS IN PLACE.
--- NOTE | 2020-10-19 11:20 | NUR ---
8696 ASSUMED CARE OF PATIENT. PLEASE SEE DOCUMENTED ASSESSMENT.PT INCONTINENT OF STOOL.
--- NOTE | 2020-10-19 14:32 | NUR ---
Therapies to continue to work with. ST to continue to follow for dysphagia, if swallow does not improve, may need peg, reassess in a few days. Cdiff. ARU following
--- NOTE | 2020-10-19 17:20 | NUR ---
PATIENT PROGRESSING TOWARDS GOALS.D5W DECREASEED AND DIET INCREASED. ORIENTED X 2-3. GOOD OUTPUT. SPOUSE HAS VISITED. REMAINS ON 1LPM NASAL CANNULA. WOUND REDRESSED AND HEALING.
--- NOTE | 2020-10-20 01:02 | NUR ---
PT ALERT ORIENTED EXPRESIVE APHASIA NOTED. TAKING NECTAR THICK LIQUIDS. TELEMETRY SHOWS SB/SR 1ST DEGREE AVB. LINDER IN PLACE DRAING YELLOW. TURNING Q 2 HRS. DRSG TO SACRAL AREA AND BARRIER CREAM APPLIED TO OLVIN BUTTOCKS. O2 AT 1 LITER NC. DENIES PAIN.
[2020-10-20 04:42] VITALS: BP 156/59
[2020-10-20 04:43] LABS: CALCIUM 8.2 mg/dL (8.5-10.1); MAGNESIUM 1.9 mg/dL (1.8-2.4); POTASSIUM 3.4 mmol/L (3.5-5.1)
[2020-10-20 05:00] VITALS: BP 133/75
[2020-10-20 05:04] LABS: INR 2.6; PROTIME 25.8 Seconds (9.20-11.50)
[2020-10-20 07:50] VITALS: BP 166/70
[2020-10-20] MEDS ORDERED: VANCOMYCIN HCL125 MG PO (09:04)
[2020-10-20] MEDS ORDERED: LANOXIN125 MCG PO (09:04)
[2020-10-20] MEDS ORDERED: AMITRIPTYLINE H25 M2 PO (09:04)
[2020-10-20] MEDS ORDERED: CARDIZEM LA240 M1 PO (09:04)
[2020-10-20] MEDS ORDERED: JANTOVEN2 MG PO (09:04)
[2020-10-20] MEDS ORDERED: HUMALOG100 UNIT/1 SUBQ (09:11)
[2020-10-20] MEDS ORDERED: LANTUS SUBQ (09:11)
[2020-10-20 11:20] VITALS: BP 163/45
--- NOTE | 2020-10-20 12:30 | NUR ---
DC orders written for ARU, await PT to see before ARU makes a decision to accept. Updated Pt's , plan ARU dc vs SNF if unable to go to ARU. Provided with a SNF list, to discuss with family.
[2020-10-20 17:14] VITALS: BP 163/45
--- NOTE | 2020-10-20 17:45 | NUR ---
REPORT CALLED TO [facility].
== END 2020-10-20 17:59 | DRG 871 ==
LOC: M.ERS 09:26 → M.TBA-ER 11:22 → M.ICU 11:22 → M.2W 11:22 → M.TBA-ER 11:40 → M.ICU 12:55 → M.2W 10-10 19:36
PROVIDERS: Family Medicine; Internal Medicine; Internal Medicine Cardiovascular Disease; Internal Medicine Nephrology; Surgery; ADMIT Internal Medicine; ATTEND Internal Medicine
PROC: 0D9670Z Drainage of Stomach with Drainage Device, Via Natural or Artificial Opening (ICD-10-PCS; principal; 2020-10-11)
PROC: 05HY33Z Insertion of Infusion Device into Upper Vein, Percutaneous Approach (ICD-10-PCS; 2020-10-12)
PROC: 5A0935A Assistance with Respiratory Ventilation, Less than 24 Consecutive Hours, High Flow/Velocity Cannula (ICD-10-PCS; 2020-10-20)
DX: A41.9 Sepsis, unspecified organism (principal); N17.0 Acute kidney failure with tubular necrosis; E11.10 Type 2 diabetes mellitus with ketoacidosis without coma; I50.23 Acute on chronic systolic (congestive) heart failure; N39.0 Urinary tract infection, site not specified; E87.1 Hypo-osmolality and hyponatremia; K56.609 Unspecified intestinal obstruction, unspecified as to partial versus complete obstruction; E87.2 Acidosis; K56.7 Ileus, unspecified; F11.20 Opioid dependence, uncomplicated; K80.10 Calculus of gallbladder with chronic cholecystitis without obstruction; I42.9 Cardiomyopathy, unspecified; G93.40 Encephalopathy, unspecified; D68.69 Other thrombophilia; I48.20 Chronic atrial fibrillation, unspecified; L89.159 Pressure ulcer of sacral region, unspecified stage; G89.29 Other chronic pain; E11.65 Type 2 diabetes mellitus with hyperglycemia; M54.2 Cervicalgia; E88.09 Other disorders of plasma-protein metabolism, not elsewhere classified; L89.301 Pressure ulcer of unspecified buttock, stage 1; E03.9 Hypothyroidism, unspecified; E78.5 Hyperlipidemia, unspecified; I11.0 Hypertensive heart disease with heart failure; E66.9 Obesity, unspecified; Z20.822 Contact with and (suspected) exposure to COVID-19; E87.6 Hypokalemia; R13.10 Dysphagia, unspecified; R65.20 Severe sepsis without septic shock; E86.9 Volume depletion, unspecified; Z88.8 Allergy status to other drugs, medicaments and biological substances; Z86.73 Personal history of transient ischemic attack (TIA), and cerebral infarction without residual deficits; Z68.32 Body mass index [BMI] 32.0-32.9, adult

== ENCOUNTER 2020-10-20 14:54 | Inpatient (IN) | payer MEDICARE, OTHER ==
[~2020-10-20] VITALS: Ht 188 cm; Wt 89.6 kg
--- NOTE | ~2020-10-20 | PROC ---
[address] [address] PROCEDURE REPORT Name: CAMILLE ANDERSON Room: [address] IN ..#: [id number] Admission: 10/20/20 Attend Phys: Darrin Prescott MD Discharge: Date of : 48 Report #: [id number] THIS REPORT FOR: cc: Joyce Burrows Tammy RNP [facility],Medical Records Staff ~ For GI report, please see the Provation report in Perceptive 7 content. By: 1010Medical Records Staff JENARO /LEBRON
[~2020-10-20 14:54] MED LIST changes: +AMITRIPTYLINE H25 M2 PO; +CARDIZEM LA240 M1 PO; +GLIPIZIDE 10 MG10 MG PO; +HUMALOG100 UNIT/1 SUBQ; +JANTOVEN2 MG PO; +LANOXIN125 MCG PO; +LANTUS SUBQ; +LEVO-T50 MCG PO; +METOPROLOL SUC100 MG PO; +NORCO 10-325 T1 EACH PO; +NORVASC10 MG PO; +SPIRONOLACTONE50 MG PO; +VANCOMYCIN HCL125 MG PO
[2020-10-20 20:00] VITALS: BP 153/78
[2020-10-21 07:51] LABS: HEMATOCRIT 33.9 % (42.0-52.0); HEMOGLOBIN 11.4 gm/dL (14.0-18.0); MCH 31.2 pg (26.0-34.0); MCHC 33.5 g/dL (28.0-37.0); MCV 93.1 fL (80.0-100.0); MPV 8.4 fl. (7.2-11.1); RBC 3.64 mil/uL (4.50-6.00); RDW-CV 12.8 % (10.5-14.5); WBC 16.4 thou/uL (4.0-11.0)
[2020-10-21 08:08] LABS: CALCIUM 8.7 mg/dL (8.5-10.1); POTASSIUM 3.2 mmol/L (3.5-5.1)
[2020-10-21 08:43] VITALS: BP 135/75
[2020-10-21 21:30] VITALS: BP 161/72
[2020-10-22 05:54] LABS: INR 2.5; PROTIME 25.3 Seconds (9.20-11.50)
[2020-10-22 06:11] LABS: CALCIUM 8.1 mg/dL (8.5-10.1); CREATININE 1.2 mg/dL (0.6-1.3)
[2020-10-22 06:12] LABS: POTASSIUM 4.2 mmol/L (3.5-5.1)
[2020-10-22 09:00] VITALS: BP 146/66
[2020-10-22 19:00] VITALS: BP 157/66
[2020-10-23 05:58] LABS: INR 2.3
[2020-10-23 06:07] LABS: CALCIUM 8.2 mg/dL (8.5-10.1); CREATININE 1.1 mg/dL (0.6-1.3); POTASSIUM 3.9 mmol/L (3.5-5.1)
[2020-10-23 08:30] VITALS: BP 144/68
[2020-10-23 20:00] VITALS: BP 135/68
[2020-10-24 04:55] LABS: PROTIME 29.7 Seconds (9.20-11.50)
[2020-10-24 05:11] LABS: CALCIUM 8.7 mg/dL (8.5-10.1); POTASSIUM 3.8 mmol/L (3.5-5.1)
[2020-10-24 08:30] VITALS: BP 159/69
--- NOTE | 2020-10-24 16:34 | EKG ---
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 : 1950 Requested By: Chato Charles Order Number: [id number] MD: Kali Dee Measurements Intervals [place] Rate: 57 P: -17 WY: 236 QRS: -26 QRSD: 97 T: -24 QT: 404 QTc: 394 Interpretive Statements Sinus rhythm Prolonged [place] interval Borderline left axis deviation Anterior infarct, old Borderline T abnormalities, inferior leads Compared to ECG 10/12/2020 08:33:35 Atrial fibrillation no longer present Myocardial infarct finding still present Electronically Signed On 10-24-2020 16:34:20 CDT by Kali Dee [email or web address] <ELECTRONICALLY SIGNED> By: Kali Dee MD, [facility] 10/24/20 1634 1313 1313 Klai Dee MD, [facility] /EPI
[2020-10-24 19:00] VITALS: BP 147/69
[2020-10-25 04:46] LABS: CALCIUM 8.5 mg/dL (8.5-10.1); CREATININE 1.1 mg/dL (0.6-1.3); POTASSIUM 4.1 mmol/L (3.5-5.1)
[2020-10-25 04:50] LABS: INR 3.3; PROTIME 32.4 Seconds (9.20-11.50)
[2020-10-25 08:00] VITALS: BP 167/75
[2020-10-26 05:34] LABS: HEMATOCRIT 34.4 % (42.0-52.0); HEMOGLOBIN 11.3 gm/dL (14.0-18.0); MCHC 32.9 g/dL (28.0-37.0); MCV 94.1 fL (80.0-100.0); MPV 7.2 fl. (7.2-11.1); RBC 3.65 mil/uL (4.50-6.00); RDW-CV 12.8 % (10.5-14.5)
[2020-10-26 05:43] LABS: INR 3.3; PROTIME 32.7 Seconds (9.20-11.50)
[2020-10-26 06:24] LABS: CALCIUM 8.3 mg/dL (8.5-10.1); CREATININE 1.1 mg/dL (0.6-1.3); POTASSIUM 4.3 mmol/L (3.5-5.1)
[2020-10-26 08:00] VITALS: BP 147/78
[2020-10-26 19:00] VITALS: BP 153/75
[2020-10-27 05:19] LABS: CREATININE 1.1 mg/dL (0.6-1.3); POTASSIUM 4.3 mmol/L (3.5-5.1)
[2020-10-27 05:54] LABS: INR 3.2
[2020-10-27 08:00] VITALS: BP 151/70
[2020-10-27 20:09] VITALS: BP 155/68
[2020-10-28 05:46] LABS: CALCIUM 8.7 mg/dL (8.5-10.1); CREATININE 1.1 mg/dL (0.6-1.3); POTASSIUM 4.3 mmol/L (3.5-5.1)
[2020-10-28 05:47] LABS: INR 2.9; PROTIME 29.1 Seconds (9.20-11.50)
[2020-10-28 07:30] VITALS: BP 169/84
[2020-10-28 20:18] VITALS: BP 150/68
[2020-10-29 08:00] VITALS: BP 143/64
[2020-10-29 21:40] VITALS: BP 147/71
[2020-10-30 08:00] VITALS: BP 151/74
[2020-10-30 19:49] VITALS: BP 146/74
[2020-10-30 21:30] LABS: INR 3.4; PROTIME 33.6 Seconds (9.20-11.50)
[2020-10-31 05:15] LABS: INR 3.5; PROTIME 34.2 Seconds (9.20-11.50)
[2020-10-31 08:30] VITALS: BP 143/71
[2020-10-31 19:00] VITALS: BP 152/84
[2020-11-01 07:30] VITALS: BP 143/72
[2020-11-01 08:02] LABS: INR 2.9; PROTIME 29.1 Seconds (9.20-11.50)
[2020-11-01 19:00] VITALS: BP 140/88
[2020-11-02 05:00] LABS: HEMATOCRIT 33.7 % (42.0-52.0); HEMOGLOBIN 11.3 gm/dL (14.0-18.0); MCH 31.1 pg (26.0-34.0); MCHC 33.4 g/dL (28.0-37.0); MCV 93.2 fL (80.0-100.0); MPV 7.6 fl. (7.2-11.1); RBC 3.62 mil/uL (4.50-6.00); RDW-CV 13.8 % (10.5-14.5); WBC 9.8 thou/uL (4.0-11.0)
[2020-11-02 05:06] LABS: CALCIUM 8.2 mg/dL (8.5-10.1); CREATININE 1.2 mg/dL (0.6-1.3); POTASSIUM 4.3 mmol/L (3.5-5.1)
[2020-11-02 05:07] LABS: INR 2.6; PROTIME 25.7 Seconds (9.20-11.50)
[2020-11-02 08:00] VITALS: BP 141/70
[2020-11-02 20:36] VITALS: BP 142/73
[2020-11-03 04:34] LABS: INR 2.4; PROTIME 24.6 Seconds (9.20-11.50)
[2020-11-03 08:10] VITALS: BP 137/71
[2020-11-03 20:00] VITALS: BP 157/78
[2020-11-04 05:07] LABS: HEMATOCRIT 36.3 % (42.0-52.0); HEMOGLOBIN 12.1 gm/dL (14.0-18.0); MCH 31.1 pg (26.0-34.0); MCHC 33.2 g/dL (28.0-37.0); MCV 93.7 fL (80.0-100.0); MPV 7.4 fl. (7.2-11.1); RBC 3.88 mil/uL (4.50-6.00); RDW-CV 13.7 % (10.5-14.5); WBC 7.9 thou/uL (4.0-11.0)
[2020-11-04 05:14] LABS: INR 2.1; PROTIME 21.8 Seconds (9.20-11.50)
[2020-11-04 05:15] LABS: CALCIUM 8.5 mg/dL (8.5-10.1)
[2020-11-04 07:30] VITALS: BP 143/77
[2020-11-04 20:18] VITALS: BP 136/62
[2020-11-05 06:11] LABS: PROTIME 20.3 Seconds (9.20-11.50)
[2020-11-05 07:45] VITALS: BP 126/67
[2020-11-05 19:00] VITALS: BP 139/77
[2020-11-06 04:05] LABS: INR 1.7; PROTIME 17.9 Seconds (9.20-11.50)
[2020-11-06 04:08] LABS: ALBUMIN 2.5 g/dL (3.4-5.0); CALCIUM 7.8 mg/dL (8.5-10.1); TOTAL BILIRUBIN 0.5 mg/dL (<0.1-1.0); TOTAL PROTEIN 5.9 g/dL (6.4-8.2)
[2020-11-06 04:11] LABS: ABSOLUTE EOSINOPHILS 0.1 thou/uL (0.0-0.7); ABSOLUTE LYMPHOCYTES 1.1 thou/uL (0.8-5.3); ABSOLUTE MONOCYTES 0.6 thou/uL (0.0-1.2); ABSOLUTE NEUTROPHILS 4.4 thou/uL (1.6-8.1); BASOPHILS 0.7 %; EOSINOPHILS 2.3 %; HEMATOCRIT 30.3 % (42.0-52.0); HEMOGLOBIN 10.5 gm/dL (14.0-18.0); LYMPHOCYTES 17.4 %; MCHC 34.8 g/dL (28.0-37.0); MONOCYTES 9.3 %; MPV 7.2 fl. (7.2-11.1); NUCLEATED RBCS 0 /100WBC; PLATELET COUNT* 277 thou/uL (150-400); POLYS 70.3 %; RBC 3.29 mil/uL (4.50-6.00); RDW-CV 13.9 % (10.5-14.5); WBC 6.3 thou/uL (4.0-11.0)
[2020-11-06 08:30] VITALS: BP 147/68
[2020-11-06 20:23] VITALS: BP 108/88
[2020-11-07 04:30] LABS: CALCIUM 8.1 mg/dL (8.5-10.1); CREATININE 1.1 mg/dL (0.6-1.3); POTASSIUM 3.9 mmol/L (3.5-5.1)
[2020-11-07 04:31] LABS: INR 1.5; PROTIME 15.6 Seconds (9.20-11.50)
[2020-11-07 04:41] LABS: ABSOLUTE EOSINOPHILS 0.1 thou/uL (0.0-0.7); ABSOLUTE LYMPHOCYTES 1.1 thou/uL (0.8-5.3); ABSOLUTE MONOCYTES 0.6 thou/uL (0.0-1.2); BASOPHILS 0.5 %; EOSINOPHILS 2.1 %; HEMATOCRIT 32.8 % (42.0-52.0); HEMOGLOBIN 11.3 gm/dL (14.0-18.0); LYMPHOCYTES 19.1 %; MCH 31.9 pg (26.0-34.0); MCHC 34.5 g/dL (28.0-37.0); MCV 92.7 fL (80.0-100.0); MONOCYTES 10.3 %; MPV 7.4 fl. (7.2-11.1); NUCLEATED RBCS 0 /100WBC; PLATELET COUNT* 284 thou/uL (150-400); RBC 3.54 mil/uL (4.50-6.00); WBC 5.8 thou/uL (4.0-11.0)
[2020-11-07 08:30] VITALS: BP 137/74
[2020-11-07 19:00] VITALS: BP 133/61
[2020-11-08 08:00] VITALS: BP 134/67
[2020-11-08 20:07] VITALS: BP 136/76
[2020-11-09 05:15] LABS: HEMATOCRIT 33.2 % (42.0-52.0); HEMOGLOBIN 11.4 gm/dL (14.0-18.0); MCHC 34.2 g/dL (28.0-37.0); MCV 93.4 fL (80.0-100.0); MPV 7.1 fl. (7.2-11.1); RBC 3.55 mil/uL (4.50-6.00); WBC 5.8 thou/uL (4.0-11.0)
[2020-11-09 05:21] LABS: INR 1.3; PROTIME 13.7 Seconds (9.20-11.50)
[2020-11-09 05:22] LABS: CALCIUM 8.2 mg/dL (8.5-10.1); POTASSIUM 4.2 mmol/L (3.5-5.1)
[2020-11-09 07:30] VITALS: BP 142/69
[2020-11-09 19:00] VITALS: BP 142/71
[2020-11-10 08:10] VITALS: BP 153/61
[2020-11-10 20:26] VITALS: BP 134/64
[2020-11-11 08:27] VITALS: BP 133/61
[2020-11-11 20:15] VITALS: BP 121/68
[2020-11-12 10:00] VITALS: BP 128/66
[2020-11-12 20:00] VITALS: BP 133/67
[2020-11-13 08:16] VITALS: BP 128/75
[2020-11-13 19:30] VITALS: BP 126/70
[2020-11-14 07:45] VITALS: BP 143/71
[2020-11-14 20:00] VITALS: BP 142/78
[2020-11-15 07:50] VITALS: BP 131/67
--- NOTE | 2020-11-15 14:52 | CON ---
[address] [address] CONSULTATION Name: JUSTINCAMILLE Kimberly Room: [address] IN M.R.#: [id number] Admission: 10/20/20 Attend Phys: Darrin Prescott MD Discharge: Date of : 48 Report #: [id number] THIS REPORT FOR: cc: Joyce Burrows Tammy RNP Namin, Farid M. MD ~ DOC #: [id number] cc: JOSE CARLOS Camejo FNP DATE OF CONSULTATION: 11/03/2020 Please note at the time of this dictation, the patient was seen and physically examined by myself. REASON FOR CONSULTATION: PEG tube placement. HISTORY OF PRESENT ILLNESS: This 70-year-old male who presented to the emergency room with complaints of nausea, vomiting and he was admitted with severe metabolic acidosis, DKA and acute kidney injury. He was noted to have a UTI, rhabdomyolysis, small-bowel obstruction and encephalopathy. Due to his moderate to severe cognitive impairment and decrease in his functional and mobility status, he was admitted to the rehab unit for further evaluation and strengthening at that time. He also then developed C. diff while he was here and had been on vancomycin, which he is now off of. His bowels have now soften and are forming up about once or twice a day. He denies any difficulty swallowing; however, he has to have thickened liquids, which he does not like and pureed food, so therefore, he is not having adequate caloric intake and only mainly eating bananas in which we were consulted for a PEG tube to add supplementation for his nutritional status until he is able to tolerate back eating regular foods. The patient states that he does not recall ever having an EGD or a colonoscopy; however, he is a poor historian. ALLERGIES: PREDNISONE. MEDICATIONS: From home metoprolol, Lipitor, Glucophage, K-Dur, omeprazole, [place], levothyroxine, Glucotrol, warfarin, digoxin, amitriptyline, insulin. 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 PAST SURGICAL HISTORY: Prostate surgery, sinus surgery and a crush neck. FAMILY HISTORY: [place] [address] CONSULTATION Name: CAMILLE ANDERSON Kimberly Room: [address]#: [id number] Admission: 10/20/20 Attend Phys: Darrin Prescott MD Discharge: Date of : 48 Report #: [id number] SOCIAL HISTORY: Denies any alcohol, tobacco, or illegal drug use. REVIEW OF SYSTEMS: Twelve point review of systems is essentially negative except what is mentioned in the HPI. PHYSICAL EXAMINATION: VITAL SIGNS: Temperature 36.7, pulse 74, respirations 20, blood pressure 142/73. HEART: Regular rate and rhythm. LUNGS: Diminished, but clear. ABDOMEN: Soft, positive bowel sounds in all four quadrants with no masses or tenderness noted. LABORATORY DATA: Hemoglobin 11.3, white count is 9.8, platelets 281. PT is 24.6, INR is 2.4. His GFR is 60. IMPRESSION: 1. Altered route of nutritional support. 2. Anticoagulant therapy, warfarin secondary to cerebrovascular accident. 3. Status post recent treatment for Clostridium difficile. PLAN: 1. We will need to obtain okay from hospitalist in managing his warfarin to have bridging of Lovenox prior to his procedure. INR needs to be 1.5 prior to us doing a PEG tube. 2. We will consult dietary for additional nutritional support once his PEG tube is placed. 3. Timing of his PEG tube will depend on when his INR is at 1.5. Thank you for allowing us to participate in this patient's care. Please do not hesitate to call with any questions in regard to this consult. MD AB Serra/SHAWNEE <ELECTRONICALLY SIGNED> By: Marvin Lott MD 11/15/20 1452 0836 [id number] Lott MD /carly
[2020-11-15 15:36] LABS: HEMATOCRIT 36.4 % (42.0-52.0); HEMOGLOBIN 12.5 gm/dL (14.0-18.0); MCH 32.3 pg (26.0-34.0); MCHC 34.4 g/dL (28.0-37.0); MCV 93.7 fL (80.0-100.0); RBC 3.89 mil/uL (4.50-6.00); RDW-CV 14.3 % (10.5-14.5); WBC 10.1 thou/uL (4.0-11.0)
[2020-11-15 15:47] LABS: ALBUMIN 2.9 g/dL (3.4-5.0); CALCIUM 8.3 mg/dL (8.5-10.1); CREATININE 1.3 mg/dL (0.6-1.3); POTASSIUM 4.4 mmol/L (3.5-5.1); TOTAL BILIRUBIN 0.3 mg/dL (<0.1-1.0); TOTAL PROTEIN 6.9 g/dL (6.4-8.2)
[2020-11-15 19:00] VITALS: BP 116/65
[2020-11-16 05:00] LABS: APTT 25.4 Seconds (25.0-31.3); PROTIME 10.9 Seconds (9.20-11.50)
[2020-11-16 05:05] LABS: CALCIUM 8.1 mg/dL (8.5-10.1); POTASSIUM 3.6 mmol/L (3.5-5.1)
[2020-11-16 05:09] LABS: HEMATOCRIT 31.7 % (42.0-52.0); MCH 31.9 pg (26.0-34.0); MCHC 34.5 g/dL (28.0-37.0); MCV 92.4 fL (80.0-100.0); MPV 7.3 fl. (7.2-11.1); RBC 3.43 mil/uL (4.50-6.00); RDW-CV 14.6 % (10.5-14.5); WBC 6.5 thou/uL (4.0-11.0)
[2020-11-16 08:00] VITALS: BP 140/70
[2020-11-16 20:35] VITALS: BP 128/74
[2020-11-17 04:55] LABS: INR 1.1; PROTIME 11.2 Seconds (9.20-11.50)
[2020-11-17 07:30] VITALS: BP 130/68
[2020-11-17 20:17] VITALS: BP 139/69
[2020-11-18 07:30] VITALS: BP 105/54; BP 123/72
[2020-11-18 20:26] VITALS: BP 124/64
[2020-11-19 08:00] VITALS: BP 118/53
[2020-11-19 19:00] VITALS: BP 121/67
[2020-11-20 08:00] VITALS: BP 134/67
[2020-11-20 11:33] LABS: INR 1.3; PROTIME 14.1 Seconds (9.20-11.50)
[2020-11-20 20:00] VITALS: BP 126/67
[2020-11-21 05:40] LABS: INR 1.5; PROTIME 15.2 Seconds (9.20-11.50)
[2020-11-21 08:10] VITALS: BP 121/68
[2020-11-21 19:00] VITALS: BP 141/65
[2020-11-22 04:52] LABS: INR 1.8; PROTIME 18.2 Seconds (9.20-11.50)
[2020-11-22 08:22] VITALS: BP 133/70
[2020-11-22 19:00] VITALS: BP 123/63
[2020-11-23 05:24] LABS: HEMATOCRIT 31.7 % (42.0-52.0); MCH 32.3 pg (26.0-34.0); MCHC 34.8 g/dL (28.0-37.0); MCV 92.9 fL (80.0-100.0); MPV 6.8 fl. (7.2-11.1); RBC 3.42 mil/uL (4.50-6.00); RDW-CV 14.5 % (10.5-14.5); WBC 6.2 thou/uL (4.0-11.0)
[2020-11-23 05:31] LABS: CALCIUM 7.6 mg/dL (8.5-10.1); POTASSIUM 3.9 mmol/L (3.5-5.1)
[2020-11-23 05:38] LABS: PROTIME 20.1 Seconds (9.20-11.50)
[2020-11-23 08:00] VITALS: BP 134/71
[2020-11-23 19:00] VITALS: BP 134/64
[2020-11-24 05:08] LABS: INR 2.5; PROTIME 25.1 Seconds (9.20-11.50)
[2020-11-24 10:34] VITALS: BP 150/68
[2020-11-24 12:24] VITALS: BP 150/68
[2020-11-24 13:43] VITALS: BP 150/68
== END 2020-11-24 14:29 | disposition home health service (06) | DRG 70 ==
LOC: M.REH 14:54
PROVIDERS: Internal Medicine; Internal Medicine Gastroenterology; Nurse Practitioner Adult Health; ADMIT Physical Medicine & Rehabilitation; ATTEND Physical Medicine & Rehabilitation
PROC: 0D758ZZ Dilation of Esophagus, Via Natural or Artificial Opening Endoscopic (ICD-10-PCS; principal; 2020-11-09)
DX: G93.41 Metabolic encephalopathy (principal); A41.9 Sepsis, unspecified organism; E11.10 Type 2 diabetes mellitus with ketoacidosis without coma; I50.23 Acute on chronic systolic (congestive) heart failure; N17.0 Acute kidney failure with tubular necrosis; R65.20 Severe sepsis without septic shock; E87.1 Hypo-osmolality and hyponatremia; K56.699 Other intestinal obstruction unspecified as to partial versus complete obstruction; N39.0 Urinary tract infection, site not specified; M62.82 Rhabdomyolysis; G89.29 Other chronic pain; I48.91 Unspecified atrial fibrillation; R11.0 Nausea; E66.9 Obesity, unspecified; E03.9 Hypothyroidism, unspecified; I11.0 Hypertensive heart disease with heart failure; K80.20 Calculus of gallbladder without cholecystitis without obstruction; T45.515A Adverse effect of anticoagulants, initial encounter; L89.152 Pressure ulcer of sacral region, stage 2; R53.81 Other malaise; Z79.01 Long term (current) use of anticoagulants; Z88.8 Allergy status to other drugs, medicaments and biological substances; Z79.899 Other long term (current) drug therapy; Z85.46 Personal history of malignant neoplasm of prostate; Z86.73 Personal history of transient ischemic attack (TIA), and cerebral infarction without residual deficits; Z79.891 Long term (current) use of opiate analgesic; Y92.89 Other specified places as the place of occurrence of the external cause; Z68.25 Body mass index [BMI] 25.0-25.9, adult; K22.9 Disease of esophagus, unspecified; R13.14 Dysphagia, pharyngoesophageal phase

== ENCOUNTER 2021-03-07 16:20 | Emergency (ER) | payer MEDICARE, OTHER ==
[~2021-03-07] VITALS: Ht 188 cm; Wt 95.3 kg
[2021-03-07 16:54] LABS: HEMATOCRIT 39.7 % (42.0-52.0); HEMOGLOBIN 13.7 gm/dL (14.0-18.0); MCH 29.3 pg (26.0-34.0); MCV 84.9 fL (80.0-100.0); RBC 4.67 mil/uL (4.50-6.00); WBC 10.3 thou/uL (4.0-11.0)
[2021-03-07 16:55] LABS: ABSOLUTE EOSINOPHILS 0.1 thou/uL (0.0-0.7); ABSOLUTE LYMPHOCYTES 0.7 thou/uL (0.8-5.3); ABSOLUTE MONOCYTES 0.6 thou/uL (0.0-1.2); ABSOLUTE NEUTROPHILS 8.8 thou/uL (1.6-8.1); BASOPHILS 0.3 %; EOSINOPHILS 1.3 %; LYMPHOCYTES 7.1 %; MCHC 34.5 g/dL (28.0-37.0); MONOCYTES 5.7 %; MPV 7.8 fl. (7.2-11.1); NUCLEATED RBCS 0 /100WBC; PLATELET COUNT* 257 thou/uL (150-400); POLYS 85.6 %; RDW-CV 13.7 % (10.5-14.5)
[2021-03-07 17:00] LABS: CALCIUM 8.3 mg/dL (8.5-10.1); CREATININE 1.3 mg/dL (0.6-1.3); POTASSIUM 3.9 mmol/L (3.5-5.1)
[2021-03-07 17:05] LABS: ALBUMIN 3.5 g/dL (3.4-5.0); TOTAL BILIRUBIN 0.7 mg/dL (<0.1-1.0); TOTAL PROTEIN 7.1 g/dL (6.4-8.2)
[2021-03-07 17:53] VITALS: BP 167/69
--- NOTE | 2021-03-07 17:54 | EKG ---
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: : 1950 Requested By: Aretha Stephenson Order Number: [id number] MD: Juni Smith Measurements Intervals [place] Rate: 74 P: 256 VA: 325 QRS: -39 QRSD: 101 T: 41 QT: 407 QTc: 452 Interpretive Statements Sinus rhythm with first-degree AV block Left axis deviation Anterior infarct, old Baseline wander in lead(s) I,II,aVR,aVL,aVF,V1,V2,V3,V4,V5,V6 Compared to ECG 10/24/2020 13:13:15 No significant changes noted Electronically Signed On 03-07-2021 17:54:20 CDT by Juni Smith [email or web address] <ELECTRONICALLY SIGNED> By: Juni Smith MD, [facility] 03/07/21 1754 1620 1620 Juni Smith MD, [facility] /EPI
[2021-03-07 18:06] LABS: APTT 35.3 Seconds (25.0-31.3); INR 2.8; PROTIME 27.8 Seconds (9.20-11.50)
[2021-03-07 18:10] LABS: ESR (SEDRATE) 16 mm/hr (0-20)
== END 2021-03-07 18:01 | disposition short-term general hospital (02) ==
LOC: M.ERS 16:20
PROVIDERS: Nurse Practitioner Family
DX: S06.309A Unspecified focal traumatic brain injury with loss of consciousness of unspecified duration, initial encounter (principal); Z20.822 Contact with and (suspected) exposure to COVID-19; S80.01XA Contusion of right knee, initial encounter; I10 Essential (primary) hypertension; E11.9 Type 2 diabetes mellitus without complications; E03.9 Hypothyroidism, unspecified; Z86.73 Personal history of transient ischemic attack (TIA), and cerebral infarction without residual deficits; Z98.890 Other specified postprocedural states; Z79.01 Long term (current) use of anticoagulants; Z79.899 Other long term (current) drug therapy; Z88.8 Allergy status to other drugs, medicaments and biological substances; W18.2XXA Fall in (into) shower or empty bathtub, initial encounter; Y93.89 Activity, other specified; Y92.89 Other specified places as the place of occurrence of the external cause; Y99.8 Other external cause status

== ENCOUNTER 2021-04-14 22:12 | Emergency (ER) | payer MEDICARE, OTHER ==
[~2021-04-14] VITALS: Ht 188 cm; Wt 89.4 kg
[2021-04-14 22:39] VITALS: BP 127/57
[2021-04-14 22:55] LABS: ABSOLUTE EOSINOPHILS 0.1 thou/uL (0.0-0.7); ABSOLUTE LYMPHOCYTES 0.9 thou/uL (0.8-5.3); ABSOLUTE MONOCYTES 0.6 thou/uL (0.0-1.2); ABSOLUTE NEUTROPHILS 8.8 thou/uL (1.6-8.1); BASOPHILS 0.2 %; EOSINOPHILS 1.2 %; HEMATOCRIT 20.8 % (42.0-52.0); HEMOGLOBIN 7.1 gm/dL (14.0-18.0); LYMPHOCYTES 8.2 %; MCH 30.2 pg (26.0-34.0); MCV 88.8 fL (80.0-100.0); MONOCYTES 5.4 %; MPV 6.5 fl. (7.2-11.1); NUCLEATED RBCS 0 /100WBC; PLATELET COUNT* 378 thou/uL (150-400); RBC 2.34 mil/uL (4.50-6.00); RDW-CV 15.9 % (10.5-14.5); WBC 10.3 thou/uL (4.0-11.0)
[2021-04-14 22:58] LABS: CALCIUM 7.8 mg/dL (8.5-10.1); CREATININE 0.6 mg/dL (0.6-1.3); POTASSIUM 3.7 mmol/L (3.5-5.1)
[2021-04-14 23:01] LABS: APTT 22.8 Seconds (25.0-31.3); PROTIME 10.8 Seconds (9.20-11.50)
[2021-04-14 23:02] LABS: ALBUMIN 1.9 g/dL (3.4-5.0); TOTAL BILIRUBIN 0.2 mg/dL (<0.1-1.0); TOTAL PROTEIN 5.4 g/dL (6.4-8.2)
--- NOTE | 2021-04-15 04:30 | NUR ---
REPORT CALLED TO KERRY GUAN AT [facility]. WILL PREPARE TO TRANSPORT PT.
[2021-04-15 05:17] VITALS: BP 137/50
--- NOTE | 2021-04-15 10:19 | EKG ---
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: CHANG : 1950 Requested By: Soco Cornejo Order Number: [id number] MD: Kali Dee Measurements Intervals [place] Rate: 81 P: -24 TN: 212 QRS: 3 QRSD: 103 T: 92 QT: 363 QTc: 422 Interpretive Statements Sinus rhythm Atrial premature complexes Anteroseptal infarct, old Nonspecific T abnormalities, lateral leads Baseline wander in lead(s) V1 Compared to ECG 03/07/2021 16:20:25 Atrial premature complex(es) now present T-wave abnormality now present Left-axis deviation no longer present Myocardial infarct finding still present Electronically Signed On 04-15-2021 10:19:42 CDT by Kali Dee [email or web address] <ELECTRONICALLY SIGNED> By: Kali Dee MD, [facility] 04/15/21 1019 30 30 Kali Dee MD, [facility] /EPI
== END 2021-04-15 05:26 | disposition short-term general hospital (02) ==
LOC: M.ERS 22:12 → M.TBA-ER 04-15 01:16 → M.ERS 04-15 01:16
PROVIDERS: Personal Emergency Response Attendant
DX: I61.5 Nontraumatic intracerebral hemorrhage, intraventricular (principal); Z20.822 Contact with and (suspected) exposure to COVID-19; D64.9 Anemia, unspecified; K92.2 Gastrointestinal hemorrhage, unspecified; M25.561 Pain in right knee; T80.89XA Other complications following infusion, transfusion and therapeutic injection, initial encounter; E11.9 Type 2 diabetes mellitus without complications; I10 Essential (primary) hypertension; E03.9 Hypothyroidism, unspecified; Z79.899 Other long term (current) drug therapy; Z88.8 Allergy status to other drugs, medicaments and biological substances

== ENCOUNTER → 2021-05-31 | Day surgery (SDC) | payer MEDICARE, OTHER ==
[~2021-05-31] MED LIST changes: +DIGOX125 MCG PO; +FLOMAX0.4 MG PO; +HYDRALAZINE 5050 MG PO; +MULTIVITAMINS1 EACH PO; +PROTONIX40 M2 PO; +SANTYL OINTMENT30 G1 TOP; +TRAMADOL 50 MG50 MG PO; +TRAMADOL HCL E200 M1 PO
--- NOTE | ~2021-05-31 | OP ---
[facility] [address] [place] [address] OPERATIVE REPORT Name: CAMILLE ANDERSON Room: [facility]#: [id number] Admission: 05/31/21 Attend Phys: Alex Walker Discharge: Date of : 48 Report #: [id number] THIS REPORT FOR: cc: Joyce Burrows Tammy RNP Patterson, Jonathan D. MD ~ DATE OF SURGERY: 05/31/2021 PREOPERATIVE DIAGNOSIS: Sacral pressure ulcer, 6 x 6 square cm, stage 4. POSTOPERATIVE DIAGNOSIS: Sacral pressure ulcer, 6 x 6 square cm, stage 4. OPERATION: Excisional debridement down through bone of sacral pressure ulcer, 6 x 6 cm. SURGEON: Alex Walker MD. ANESTHESIA: General. ESTIMATED BLOOD LOSS: Minimal. SPECIMENS: Bone for culture and sensitivity. DESCRIPTION OF PROCEDURE: After informed consent was obtained, the patient was brought to the operating room and placed supine. SCDs were placed and working, preoperative antibiotics were administered, general anesthesia was induced. The patient was placed in the right lateral decubitus position with an axillary roll and all bony prominences protected. The area was then prepped and draped in the usual sterile fashion. This was an excisional debridement. I used cautery. The skin overlying the wound was excised so that the wound measured 6 x 6 cm. The underlying fascia appeared healthy. I did take a sample of bone with a rongeur. Sterile dressings were applied after the wound was packed with gauze. COMPLICATIONS: None. DISPOSITION: The patient was taken to recovery in satisfactory condition. By: 1022 1033Jopau Walker MD /nt
[2021-05-31 07:21] LABS: HEMATOCRIT 35.3 % (42.0-52.0); HEMOGLOBIN 11.8 gm/dL (14.0-18.0); MCH 28.4 pg (26.0-34.0); MCHC 33.4 g/dL (28.0-37.0); MCV 84.9 fL (80.0-100.0); MPV 6.7 fl. (7.2-11.1); RBC 4.16 mil/uL (4.50-6.00); RDW-CV 14.3 % (10.5-14.5)
[2021-05-31 07:34] LABS: CALCIUM 8.8 mg/dL (8.5-10.1); CREATININE 0.6 mg/dL (0.6-1.3); POTASSIUM 3.3 mmol/L (3.5-5.1)
--- NOTE | 2021-05-31 14:22 | EKG ---
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 : 1950 Requested By: Juan Pablo Gil Order Number: [id number] MD: Edwar Gatica Measurements Intervals [place] Rate: 79 P: -9 TX: 65 QRS: 12 QRSD: 105 T: 106 QT: 378 QTc: 434 Interpretive Statements Sinus rhythm Abnormal inferior Q waves Anterior infarct of indeterminate age Nonspecific T abnormalities, lateral leads Compared to ECG 04/14/2021 22:31:00 Inferior Q waves now present Q waves now present Atrial premature complex(es) no longer present Myocardial infarct finding still present T-wave abnormality still present Electronically Signed On 05-31-2021 14:22:39 CURRICULUM COORDINATOR by Edwar Gatica [email or web address] <ELECTRONICALLY SIGNED> By: Edwar Gatica MD, [facility] 05/31/21 1422 0 0 Edwar Gatica MD, [facility] /EPI
== END | disposition home or self-care (01) ==
LOC: M.SUR 06:42
PROVIDERS: Anesthesiology; ATTEND Surgery
DX: L89.154 Pressure ulcer of sacral region, stage 4 (principal); I10 Essential (primary) hypertension; I48.91 Unspecified atrial fibrillation; E11.9 Type 2 diabetes mellitus without complications; E03.9 Hypothyroidism, unspecified; Z98.890 Other specified postprocedural states; Z79.899 Other long term (current) drug therapy; Z79.01 Long term (current) use of anticoagulants; Z20.822 Contact with and (suspected) exposure to COVID-19; Z88.8 Allergy status to other drugs, medicaments and biological substances; Z86.73 Personal history of transient ischemic attack (TIA), and cerebral infarction without residual deficits

== ENCOUNTER 2021-07-05 10:02 | Inpatient (IN) | payer MEDICARE, OTHER ==
[~2021-07-05] VITALS: Ht 185.4 cm; Wt 74.1 kg
--- NOTE | ~2021-07-05 | EKG ---
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 : 1950 Requested By: Chato Charles Order Number: [id number] MD: Measurements Intervals [place] Rate: 107 P: 54 AR: 169 QRS: 10 QRSD: 100 T: -88 QT: 333 QTc: 445 Interpretive Statements Sinus tachycardia Ventricular premature complex Inferior infarct, age indeterminate Anterior infarct, acute (LAD) Compared to ECG 05/31/2021 08:01:12 Ventricular premature complex(es) now present Sinus rhythm no longer present Inferior Q waves no longer present Q waves no longer present T-wave abnormality no longer present Myocardial infarct finding still present [email or web address] By: 1027 1027 Epiphany EpiphMD dennis /JUDE
[2021-07-05 10:10] VITALS: BP 167/88
[2021-07-05 10:38] LABS: HEMATOCRIT 38.9 % (42.0-52.0); HEMOGLOBIN 12.8 gm/dL (14.0-18.0); MCH 27.2 pg (26.0-34.0); MCV 82.5 fL (80.0-100.0); MPV 7.1 fl. (7.2-11.1); NUCLEATED RBCS 0 /100WBC; PLATELET COUNT* 311 thou/uL (150-400); RBC 4.71 mil/uL (4.50-6.00); RDW-CV 15.8 % (10.5-14.5); WBC 15.8 thou/uL (4.0-11.0)
[2021-07-05] MEDS ORDERED: MEGESTROL ACETA20 MG PO (10:55)
[2021-07-05 10:59] LABS: CALCIUM 8.5 mg/dL (8.5-10.1); POTASSIUM 3.3 mmol/L (3.5-5.1)
[2021-07-05 11:10] LABS: ALBUMIN 1.9 g/dL (3.4-5.0); TOTAL BILIRUBIN 0.5 mg/dL (<0.1-1.0); TOTAL PROTEIN 6.3 g/dL (6.4-8.2)
[2021-07-05 11:15] LABS: BE 2.4 mmol/L (-2 to +3); PCO2 32.9 mmHg (35.0-45.0)
[2021-07-05 11:21] LABS: ABSOLUTE LYMPHOCYTES 0.8 thou/uL (0.8-5.3); ABSOLUTE MONOCYTES 1.4 thou/uL (0.0-1.2); ABSOLUTE NEUTROPHILS 13.6 thou/uL (1.6-8.1)
[2021-07-05 11:22] LABS: PLATELET ESTIMATE ADEQUATE
[2021-07-05 12:54] LABS: BE 0.2 mmol/L (-2 to +3); PCO2 34.2 mmHg (35.0-45.0); pH 7.455 (7.340-7.450)
[2021-07-05 12:56] LABS: PO2 222.3 mmHg (75.0-100.0)
[2021-07-05 16:15] VITALS: BP 150/68
--- NOTE | 2021-07-05 17:07 | NUR ---
Wound Nurse Asked to see patient in Emergency room due to negative pressure dressing in place to coccyx was sent from long-term not connected to negative pressure machine. Removed dressing. Patient incont of stool. Washed with soap and water. Patted Dry. Wound 1 coccyx pressure wound stage 4. Moderate amount brownish drainage, 50 percent pink granulation and 50 percent slough. Wound measures 6.0cm length, 4.5cm width and 2.5cm depth. Packed with aquacel ag and covered with bordered foam. Wound 2 is right buttock deep tissue injury measuring 7.0cm length, 4.0cm width and 0.1cm depth. Skin purplish/red nonblanchable with small open area with small amount serous drainage. Applied bordered foam. Patient repositioned. Would recommend low air loss bed when patient able to have bed on regular floor.
--- NOTE | 2021-07-05 18:47 | NUR ---
PT HAD RHYTHM CHANAGE TO A.FIB, EKG OBTAINED, DR. BARRERA NOTIFIED
[2021-07-05 19:31] VITALS: BP 148/76
[2021-07-05 23:33] VITALS: BP 138/66
[2021-07-06 03:24] LABS: ABSOLUTE LYMPHOCYTES 0.3 thou/uL (0.8-5.3); ABSOLUTE MONOCYTES 0.3 thou/uL (0.0-1.2); HEMATOCRIT 35.3 % (42.0-52.0); HEMOGLOBIN 11.3 gm/dL (14.0-18.0); LYMPHOCYTES 1.6 %; MCV 84.3 fL (80.0-100.0); MONOCYTES 1.6 %; MPV 7.1 fl. (7.2-11.1); NUCLEATED RBCS 0 /100WBC; PLATELET COUNT* 279 thou/uL (150-400); POLYS 96.8 %; RBC 4.18 mil/uL (4.50-6.00); RDW-CV 16.1 % (10.5-14.5); WBC 16.5 thou/uL (4.0-11.0)
[2021-07-06 03:30] VITALS: BP 142/76
[2021-07-06 03:46] LABS: ALBUMIN 1.5 g/dL (3.4-5.0); CALCIUM 8.2 mg/dL (8.5-10.1); CREATININE 0.7 mg/dL (0.6-1.3); POTASSIUM 3.2 mmol/L (3.5-5.1); TOTAL BILIRUBIN 0.3 mg/dL (<0.1-1.0); TOTAL PROTEIN 5.7 g/dL (6.4-8.2)
[2021-07-06 06:08] LABS: URINE BILIRUBIN NEGATIVE (Negative); URINE BLOOD 2+ (Negative); URINE CLARITY CLEAR; URINE COLOR YELLOW; URINE GLUCOSE-RANDOM NEGATIVE (Negative); URINE KETONES TRACE (Negative); URINE LEUKOCYTES-REFLEX 1+ (Negative); URINE NITRITE-REFLEX NEGATIVE (Negative); URINE PROTEIN 2+ (Negative); URINE UROBILINOGEN 0.2 E.U./dl (0.2-1.0)
[2021-07-06 06:13] LABS: HYALINE CASTS 0-3 Few /LPF (None Seen); SQUAMOUS NONE SEEN /LPF (0-3); URINE WBC-REFLEX 6-15 Few /HPF (0-5)
[2021-07-06 06:14] LABS: CRYSTALS None Seen /LPF (None Seen)
[2021-07-06 08:00] VITALS: BP 154/79
--- NOTE | 2021-07-06 12:25 | EKG ---
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 : 1950 Requested By: Mahendra Poon Order Number: [id number] MD: Juni Smith Measurements Intervals [place] Rate: 107 P: 54 CT: 169 QRS: 10 QRSD: 100 T: -88 QT: 333 QTc: 445 Interpretive Statements Sinus tachycardia Ventricular premature complex Inferior infarct, age indeterminate, possible Anterior infarct, age indeterminate Compared to ECG 05/31/2021 08:01:12 Ventricular premature complex(es) now present Sinus rhythm no longer present Inferior Q waves no longer present Q waves no longer present T-wave abnormality no longer present Myocardial infarct finding still present Electronically Signed On 07-06-2021 12:25:21 THEATRICAL SCENIC DESIGNER by Juni Smith [email or web address] <ELECTRONICALLY SIGNED> By: Juni Smith MD, [facility] 07/06/21 1225 1027 1027 Juni Smith MD, [facility] /EPI
[2021-07-06 12:59] VITALS: BP 101/59
--- NOTE | 2021-07-06 16:03 | NUR ---
CM ASSESSMENT ASSESSMENT COMPLETED WITH PT (RED ANDERSON - [phone]). PT LIVES AT [facility] ([phone]). PT HAS BEEN IN LTC FOR 8-10 DAYS AND BEFORE THAT WAS AT [facility] FOLLOWING A STROKE (PT IN SNF SINCE 03/2021). PT IS WHEELCHAIR BOUND. PT IS DEPENDENT FOR ALL ADLS. PT HAD PAST HH WITH UNKNOWN AGENCY. PT HAD PAST ACUTE REHAB AT [facility]. CM TO FOLLOW FOR DC CURRENT PLAN IS FOR PT TO EITHER DC BACK TO [facility] OR PALLIATIVE DEPENDING ON PT PROGRESS.
[2021-07-06 17:38] VITALS: BP 140/76
--- NOTE | 2021-07-06 22:45 | CON ---
[address] [address] CONSULTATION Name: CAMILLE ANDERSON Room: [address] IN .R.#: [id number] Admission: 07/05/21 Attend Phys: Chato Charles MD Discharge: Date of : 48 Report #: [id number] THIS REPORT FOR: cc: Joyce Burrows Tammy RNP Pervez, Adeel MD ~ DATE OF CONSULTATION: 07/05/2021 REQUESTING PHYSICIAN: Chato Charles MD INDICATION FOR CONSULTATION: Acute hypoxemic respiratory failure secondary to COVID-19. HISTORY OF PRESENT ILLNESS: A 71-year-old gentleman, past medical history includes a history of congestive heart failure with left ventricular ejection fraction is 35-40% with a pulmonary artery systolic of 40 on a recent echo from few months ago. He is a resident of a long-term care facility. He has had significant decubitus ulcers. He has diabetes. He has had DKA in the past. He has had acute renal failure in the past and he has had C. diff in the past. He is vaccinated with COVID-19 Pfizer vaccine, not known to me as to whether he got the booster or not. He is now here with respiratory illness. At the time of my evaluation, he was in respiratory distress and therefore had been placed on BiPAP. He had stabilized with 100% FiO2 and BiPAP in place, but he now was in atrial fibrillation, rate controlled. The patient was unable to provide a further history or review of systems. PAST MEDICAL HISTORY: Congestive heart failure, left ventricular ejection fraction is 35-40, pulmonary artery systolic 40 on an echo few months ago. Acute renal failure in the past, but creatinine at baseline is normal. Decubitus ulcers, intraventricular hemorrhage due to trauma from a syncopal episode, crushed neck 6 years ago, sinus surgery, diabetes, hypertension, prostate surgery, gallbladder surgery, hemorrhagic stroke with left-sided defect, hypothyroidism, ischemic stroke. SOCIAL HISTORY: Lifetime nonsmoker. Previous history of alcohol use. No known history of illegal drug use. CURRENT MEDICATIONS: List in [email or web address] reviewed. HOME MEDICATIONS: List also in [email or web address] reviewed. ALLERGIES: REPORTED TO BE ALLERGIC TO PREDNISONE; HOWEVER, I AM NOT CERTAIN IF THIS INFORMATION IS CORRECT. FAMILY HISTORY: [place] [address] CONSULTATION Name: ALLACAMILLE IRIZARRY Kimberly Room: [address]#: [id number] Admission: 07/05/21 Attend Phys: Chato Charles MD Discharge: Date of : 48 Report #: [id number] PHYSICAL EXAMINATION: GENERAL: He is awake. He is on BiPAP when evaluated this evening. VITAL SIGNS: In the records. These are reviewed. He was unable to provide any further history. HEENT: Head is normocephalic and atraumatic. NECK: Does not show raised JVP. CHEST: Breath sounds are bilaterally equal. No added sounds. HEART: Irregular. No murmur. ABDOMEN: Soft, nontender. EXTREMITIES: Lower extremities, no edema, no calf tenderness. LABORATORY DATA: CT of chest and chest x-ray in [facility] reviewed. ASSESSMENT AND PLAN: 1. Acute hypoxemic respiratory failure secondary to COVID-19. Recommend keeping him on a BiPAP while asleep. Okay to place him on a heated high-flow nasal cannula and titrate down oxygen when awake if tolerated. 2. COVID-19. Recommend increasing dexamethasone. I will go ahead and give him 10 mg now and then increase to 10 mg b.i.d. Continue remdesivir. We will also benefit from Actemra if available. I understand that it is in short supply. Follow LFTs. 3. Pulmonary infiltrates. I agree with vancomycin and cefepime. I increased the cefepime dose to 2 grams b.i.d. My suspicion of atypical infection is not high, therefore I did not add additional antibiotic to cover atypicals, but I will reassess tomorrow. Watch creatinine closely. If creatinine rises, then recommend having a low threshold of switching vancomycin over to linezolid. More cultures and serologies are also ordered. 4. Possible component of bronchospasm. Ordered Brovana. He is on dexamethasone as above. We will give him Xopenex as needed. 5. Atrial fibrillation. We will defer management to the Primary Service. If he remains in atrial fibrillation, then this will be an indication to fully anticoagulate. There is a previous history of intraventricular hemorrhage and therefore initially I ordered the Lovenox to be increased at least to intermediate dose, but then I cut it back to prophylactic. We will investigate this further. 6. Diabetes/hyperglycemia. I would expect his glucoses to rise. He is on Lantus and low-dose insulin sliding scale. For now, I increased sliding scale to medium dose, recommend reevaluating tomorrow. 7. Chronic systolic congestive heart failure. I feel that we should consider diuresing him, but he recently received IV dye and also his potassium is low and I do not have a recent magnesium level. Therefore, I have to hold off for now. I recommend replacing potassium. Recommend checking magnesium and replacing magnesium if indicated. We will subsequently reassess tomorrow regarding [address] [place] [address] CONSULTATION Name: CAMILLE ANDERSON Room: [address] [place] .R.#: [id number] Admission: 07/05/21 Attend Phys: Chato Charles MD Discharge: Date of : 48 Report #: [id number] whether he will benefit from diuresis. 8. Clostridium difficile prophylaxis/history of Clostridium difficile. Lactinex. 9. Gastrointestinal prophylaxis. He is on Protonix. 10. History of decubitus ulcers. 11. Do not resuscitate/do not intubate status noted. The patient is critically ill at this time. Total time spent providing critical care to this patient today exceeds 39 minutes. <ELECTRONICALLY SIGNED> By: Irineo Santoyo MD 07/06/21 [id number] Santoyo MD /nt
[2021-07-06 23:01] VITALS: BP 148/71
[2021-07-07 01:20] VITALS: BP 162/74
[2021-07-07 04:11] LABS: HEMATOCRIT 33.8 % (42.0-52.0); MCH 27.4 pg (26.0-34.0); NUCLEATED RBCS 0 /100WBC
[2021-07-07 04:12] LABS: ABSOLUTE LYMPHOCYTES 0.3 thou/uL (0.8-5.3); ABSOLUTE MONOCYTES 0.3 thou/uL (0.0-1.2); ABSOLUTE NEUTROPHILS 14.5 thou/uL (1.6-8.1); BASOPHILS 0.1 %; HEMOGLOBIN 11.1 gm/dL (14.0-18.0); LYMPHOCYTES 1.9 %; MCHC 32.7 g/dL (28.0-37.0); MCV 83.9 fL (80.0-100.0); MPV 7.6 fl. (7.2-11.1); PLATELET COUNT* 288 thou/uL (150-400); RBC 4.04 mil/uL (4.50-6.00); RDW-CV 15.7 % (10.5-14.5); WBC 15.1 thou/uL (4.0-11.0)
[2021-07-07 04:25] VITALS: BP 156/74
[2021-07-07 04:52] LABS: ALBUMIN 1.4 g/dL (3.4-5.0); CREATININE 0.7 mg/dL (0.6-1.3); POTASSIUM 3.2 mmol/L (3.5-5.1); TOTAL BILIRUBIN 0.4 mg/dL (<0.1-1.0); TOTAL PROTEIN 5.4 g/dL (6.4-8.2)
[2021-07-07 07:49] VITALS: BP 133/82
--- NOTE | 2021-07-07 15:23 | NUR ---
WOUND CARE PATIENT SEEN TODAY FOR COCCYX WOUND DRESSING CHANGE.WOUND APPERANCE REMAINS SAME NO CHANGE IN SIZE OR APPERANCE. DR PARKER CAME IN REQUESTING WOUND VAC BE PLACED ON COCCYX WOUND. SPOKE WITH PATIENTS NURSE HE STATED THAT DR BARRERA SPOKE WITH FAMILY AND THEY MADE THE DECISION TO MAKE COMFORT CARE ONLY. DRESSING WAS CHANGED TO COCCYX WITH [employer]QU[employer] & SACRAL BORDERED FOAM. PATIENT TURNED AND REPOSITION TO LEFT SIDE.
--- NOTE | 2021-07-07 16:15 | NUR ---
CM FOLLOWUP PT FROM [facility] ([phone]). IF PT CONTINUES TO PROGRESS, PT WILL REMAIN AT [facility] FOR CARE. PER FAMILY, IF PT NOT PROGRESSING IN 24-48 HOURS, PT SHOULD RETURN TO [facility] WITH HOSPICE. CM CALLED [facility] TO DETEMINE IF PT COULD RETURN WITH HOSPICE AND IF THAT WAS POSSIBLE FOR THIS WEEKEND. CM WAS NOT ABLE TO SPEAK WITH ANYONE ON THAT MATTER. CM TO FOLLOWUP.
[2021-07-07 20:50] VITALS: BP 135/76
[2021-07-08] VITALS: BP 140/73
--- NOTE | 2021-07-08 05:20 | NUR ---
PT NOT ALERT, SLEPT ALL SHIFT. MORPHINE AND ATIVAN GIVEN FOR COMFORT CARE MEASURES. PATIENT Q2 TURN, HOURLY CHECKS. LINDER IN PLACE. NO BM THIS SHIFT. EDEMA LLE. SINUS TACH ON MONITOR. LUNG SOUNDS COURSE. COMFORT CARE THIS SHIFT.
[2021-07-08 05:40] LABS: ABSOLUTE LYMPHOCYTES 0.2 thou/uL (0.8-5.3); ABSOLUTE MONOCYTES 0.6 thou/uL (0.0-1.2); BASOPHILS 0.1 %; HEMATOCRIT 34.1 % (42.0-52.0); HEMOGLOBIN 11.1 gm/dL (14.0-18.0); MCH 27.5 pg (26.0-34.0); MCHC 32.6 g/dL (28.0-37.0); MCV 84.2 fL (80.0-100.0); MONOCYTES 3.9 %; MPV 7.4 fl. (7.2-11.1); NUCLEATED RBCS 0 /100WBC; PLATELET COUNT* 295 thou/uL (150-400); RBC 4.05 mil/uL (4.50-6.00); WBC 15.8 thou/uL (4.0-11.0)
[2021-07-08 05:54] LABS: ALBUMIN 1.4 g/dL (3.4-5.0); CALCIUM 8.1 mg/dL (8.5-10.1); CREATININE 0.8 mg/dL (0.6-1.3); POTASSIUM 3.3 mmol/L (3.5-5.1); TOTAL BILIRUBIN 0.4 mg/dL (<0.1-1.0); TOTAL PROTEIN 5.2 g/dL (6.4-8.2)
[2021-07-08 09:00] VITALS: BP 106/60
[2021-07-08] MEDS ORDERED: MORPHINE S20 MG/5 ML PO (12:26)
[2021-07-08] MEDS ORDERED: LORAZEPAM I2 MG/1 ML PO (12:26)
--- NOTE | 2021-07-08 13:27 | NUR ---
Discharge orders have been written for patient to return to [facility]TC - [facility] with Hospice. Called - Savanah at: and dicussed. She is agreeable with discharge back to [facility] with Hospice. She has no preference for hospice agency and is fine with using [facility]. has Covid herself and symptomatic - unable to come to hospital to sign Outside DNR. Had nurse listen on the phone and was given the verbal ok. Lewis is going to 's home and handing paperwork through the doorway and will have another outside DNR signed. Oxygen is currently being set up by [facility]. D/c paperwork faxed to [facility] , and to [facility] . [facility] called to request non emergent ambulance picker time for 4:30 PM. Called [facility] and with pick time through [facility]. met with floor RN to provide outside DNR, and ambulance form, reported 4:30 picker time, and provided number for report.
--- NOTE | 2021-07-08 16:21 | NUR ---
pt. discharged to [facility]. report given to yunior boykin. pt. left by ambulance, on oxygen 2l, in stable condition, at time of leaving unit.
== END 2021-07-08 16:15 | disposition hospice, home (50) | DRG 871 ==
LOC: M.ERS 10:02 → M.TBA-ER 12:13 → M.ORTHSURG 07-06 22:33
PROVIDERS: Physician Assistant; ADMIT Internal Medicine; ATTEND Internal Medicine
DX: A41.89 Other specified sepsis (principal); U07.1 COVID-19; E43 Unspecified severe protein-calorie malnutrition; J96.01 Acute respiratory failure with hypoxia; J12.82 Pneumonia due to coronavirus disease 2019; I50.22 Chronic systolic (congestive) heart failure; E87.0 Hyperosmolality and hypernatremia; E11.9 Type 2 diabetes mellitus without complications; I10 Essential (primary) hypertension; E03.9 Hypothyroidism, unspecified; I50.9 Heart failure, unspecified; I48.91 Unspecified atrial fibrillation; E11.65 Type 2 diabetes mellitus with hyperglycemia; Z66 Do not resuscitate; L89.159 Pressure ulcer of sacral region, unspecified stage; Z51.5 Encounter for palliative care; Z79.899 Other long term (current) drug therapy; Z86.73 Personal history of transient ischemic attack (TIA), and cerebral infarction without residual deficits; Z88.8 Allergy status to other drugs, medicaments and biological substances; Z68.21 Body mass index [BMI] 21.0-21.9, adult